=== PATIENT | female | born 1950 | race Caucasian/White ===

== ENCOUNTER 2016-08-10 15:51 | Inpatient (IN) | payer OTHER ==
--- NOTE | ~2016-08-10 | OP ---
Record Of Operation [facility] [address] [place]. [address] NAME: HAWA TURNER : 50 STATUS : ADM IN PAT#: [id number] AGE: 66 ADM/REG DATE : 08/10/16 MR#: [id number] REPORT SERV DATE: 08/12/16 DICTATED BY: LEV GARCIA DATE: 08/12/16 REPORT STATUS : Draft TRANSCRIBED BY: MODL DATE: 08/12/16 DATE OF PROCEDURE: 08/12/2016 PULMONARY CRITICAL CARE MEDICINE INTUBATION NOTE REASON FOR INTUBATION: Acute hypoxemic and hypercapnic respiratory. CONSENT: Emergent. PROCEDURE IN DETAIL: Hawa Turner with rapid response moved over to the MICU from the floor, and acute hypercapnic and hypoxemic respiratory failure. She was found to be in marked respiratory distress and upon arrival to the MICU, she was electively intubated. She was positioned in the usual fashion premedicated with etomidate 20 mg and rocuronium 50 mg ,and a #3 GlideScope was advanced into her mouth with grade 1 view of her cords. #7.5 endotracheal tube was passed through the cords with no difficulty and secured to the teeth at 20 cm using securement device. An OG tube was also inserted under direct visualization with the GlideScope. Following intubation, there was positive color change on CO2 detector. Bilateral breath sounds and absent breath sounds over the fundus of the stomach with bagging. Positive condensation in the tube and a followup chest x-ray was ordered for confirmation of tube location. Please see my handwritten progress note for additional details of critical care rendered to Ms. Turner this morning in the MICU. SYED/KATIE Lev Garcia MD / [id number] CC: DO Nestor Velasco M.D.
--- NOTE | ~2016-08-10 | OP ---
Record Of Operation [facility] [address] [place]. [address] NAME: MARIBELL TURNER : 50 STATUS : ADM IN PAT#: [id number] AGE: 66 ADM/REG DATE : 08/10/16 MR#: [id number] REPORT SERV DATE: 08/13/16 DICTATED BY: TUCKER ADAMS DATE: 08/13/16 REPORT STATUS : Draft TRANSCRIBED BY: MODL DATE: 08/13/16 DATE OF PROCEDURE: 08/12/2016 PROCEDURE: Placement of right femoral central line. REASON: The patient is hypotensive, requires pressors, and only has peripheral access. DESCRIPTION OF PROCEDURE: Consent was obtained for central line placement from the family. The patient is intubated. The right groin was prepped and draped in sterile fashion. Lidocaine 1% was used as a local anesthetic. The right femoral vein was localized using ultrasound guidance. The right femoral vein was easily seen and entered with a large bore needle. Guidewire was threaded through the needle, which was then removed. The site was dilated and 20-cm triple-lumen catheter was placed using Seldinger technique. The line was sewn in place with 2-0 silk and sterile Biopatch and dressing were applied. Good blood return was obtained from all three ports. /KATIE Tucker Adams M.D. / [id number] CC: DO Nestor Velasco M.D.
--- NOTE | ~2016-08-10 | DS ---
Discharge Summary [place] [address] [place]. [address] NAME: MARIBELL TURNER : 50 STATUS : DIS IN PAT#: [id number] AGE: 66 ADM/REG DATE : 08/10/16 MR#: [id number] REPORT SERV DATE: 09/06/16 DICTATED BY: JONNIE AGUIRRE DATE: 09/06/16 REPORT STATUS : Draft TRANSCRIBED BY: MODMarlon DATE: 09/06/16 ADMISSION DATE: 08/10/2016 DISCHARGE DATE: 09/06/2016 This will serve as a discharge summary for the patient. She has been here since 08/10/2016 and has several other interim discharge summaries from the other vertica architect including on 08/19/2016, 08/25/2016, and most recently 09/02/2016. CONDITION AT DISCHARGE: Is alive and improved. The patient is being transferred to [facility] facility for slow weaning of her vent dependent respiratory failure. HISTORY OF PRESENT ILLNESS: Ms. Turner is an unfortunate, unhealthy 66-year-old woman with multiple medical problems, most remarkable for this severe COPD with ongoing tobacco abuse up until admission, who was hospitalized with acute on chronic hypercapnic and hypoxemic respiratory failure. She remains on mechanical ventilation and failed to wean successfully and underwent tracheostomy placement. She had a PEG tube inserted as well and is doing better with T-piece trials and CPAP trials on the ventilator. Since the last interim discharge summary, she has actually had no new significant events which is to say she has been weaned maintenance sedation and has done well with benzodiazepines and Seroquel. She is off all active drips and again has had a tracheostomy tube and a PEG tube. PHYSICAL EXAMINATION: GENERAL: On today's exam, she is awake and alert. Somewhat anxious, but in no acute respiratory distress. VITAL SIGNS: Stable. HEENT: Normocephalic and atraumatic. NECK: Supple. No lymphadenopathy. No JVD. CHEST: Symmetric with good expansion bilaterally. LUNGS: Have very distant breath sounds, but otherwise clear. CARDIOVASCULAR: She has S1 and S2, which are regular rate and rhythm. ABDOMEN: Benign. She has no edema, clubbing, or cyanosis. ASSESSMENT AND PLAN: 1. Respiratory failure. She has acute on chronic hypercapnic and hypoxemic respiratory failure with very severe chronic obstructive pulmonary disease. She is being transferred to [facility] facility for further weaning. 2. Dysphagia. She remains with tracheostomy, so she had a PEG tube placed. 3. Tobacco abuse. She was smoking up until admission and has remained on nicotine replacement therapy and prednisone. 4. Underlying anxiety and chronic pain syndrome, she is now doing well on symptom triggered anxiolytics and analgesics, off all other maintenance drips. DICTATED BY: Jonnie Aguirre M.D. Discharge Summary [address] [address] NAME: MARIBELL TURNER : 50 STATUS : DIS IN PAT#: [id number] AGE: 66 ADM/REG DATE : 08/10/16 MR#: [id number] REPORT SERV DATE: 09/06/16 DICTATED BY: JONNIE AGUIRRE DATE: 09/06/16 REPORT STATUS : Draft TRANSCRIBED BY: KATIE DATE: 09/06/16 PAULETTE/KATIE Jonnie Aguirre M.D. / [id number] CC: MD Nestor Perez M.D.
--- NOTE | ~2016-08-10 | IDS ---
Interim Discharge Summary [facility] [address] [place]. [address] NAME: MARIBELL TURNER : 50 STATUS : ADM IN PAT#: [id number] AGE: 66 ADM/REG DATE : 08/10/16 MR#: [id number] REPORT SERV DATE: 08/19/16 DICTATED BY: TIFFANY JAIME DATE: 08/19/16 REPORT STATUS : Draft TRANSCRIBED BY: MODL DATE: 08/19/16 ADMISSION DATE: 08/10/2016 DISCHARGE DATE: DATE OF TRANSFER TO THE ICU: 08/12/2016. INTERIM DIAGNOSES: 1. Acute hypercapnic and hypoxic respiratory failure. 2. Acute chronic obstructive pulmonary disease exacerbation. 3. Shock. 4. Chronic pain. 5. History of alcohol abuse. ICU COURSE: Please see dictated H and P for full patient presentation and history. BRIEF SUMMARY: The patient is a 66-year-old white female with a past medical history of COPD, chronic pain, and alcohol use, who initially was admitted to the Hospitalist Service on 08/11/2016 with acute COPD exacerbation. She decompensated in less than 24 hours and had to be moved to the ICU where she was intubated for acute hypercapnic respiratory failure. On arrival to the ICU, she also developed hypotension and shock and had to have a central line placed and was started on Levophed. Empirically, she was placed on antibiotics as well for potentially septic shock. She did not grow any organisms anywhere from her sputum or blood, and antibiotics were eventually discontinued yesterday after a full course. She has also been weaned off Levophed and has been off pressors for the last several days now. Really, her main issue right now continues to be her respiratory failure. She has been on IV steroids as well as bronchodilators for an acute COPD exacerbation. I was actually able to wean her and liberate her from the ventilator on 08/16/2016, but then, she required re- intubation later that night for respiratory failure, and she remains on the ventilator at this time. She is beginning to have daily CPAP trials again, and I hope to have her be re- extubated in the next 24 to 72 hours. She is several liters positive today, so I am going to diurese her today in hopes of helping wean her from the ventilator. Otherwise, I am continuing her COPD treatment. She remains alert and oriented at this time. She does appear a little anxious, so I am going to transition her from propofol over to Precedex today as well in hopes that that will help liberate her from the ventilator as well. She still remains on the ventilator in ICU, and the oncoming manager education will begin taking care of her tomorrow. Please call if you have any questions. DE/KATIE Tiffany Jaime MD / [id number] Interim Discharge Summary [address] [address] NAME: MARIBELL TURNER : 50 STATUS : ADM IN PAT#: [id number] AGE: 66 ADM/REG DATE : 08/10/16 MR#: [id number] REPORT SERV DATE: 08/19/16 DICTATED BY: TIFFANY JAIME DATE: 08/19/16 REPORT STATUS : Draft TRANSCRIBED BY: KATIE DATE: 08/19/16 CC: MD Nestor Perez M.D.
--- NOTE | ~2016-08-10 | OP ---
Record Of Operation [facility] [address] [place]. [address] NAME: MARIBELL TURNER : 50 STATUS : ADM IN [facility]#: [id number] AGE: 66 ADM/REG DATE : 08/10/16 MR#: [id number] REPORT SERV DATE: 08/29/16 DICTATED BY: RENE BOLANOS DATE: 08/29/16 REPORT STATUS : Draft TRANSCRIBED BY: MODL DATE: 08/29/16 DATE OF PROCEDURE: PROCEDURE: EGD with PEG tube placement. INDICATION: Aphagia and chronic respiratory failure with plans for tracheostomy later today. MEDICATIONS: Propofol infusion. COMPLICATIONS: None. HISTORY: See consult note for details. Her heparin and tube feedings were held last night as she is going to have a trach later this afternoon. The potential risks were reviewed with the family and they elected to proceed. FINDINGS: Examination of the esophagus, stomach, and duodenum revealed a little bit of residual bile, but no evidence of gastric outlet obstruction. There was a nasogastric tube in place with the tip just beyond the pylorus. It was removed. A site for PEG tube placement was selected by transillumination and finger compression, and a 24-Yakut gastrostomy tube was placed via the push technique without difficulty. The patient tolerated the procedure well. IMPRESSION: Aphagia, status post PEG tube placement. PLAN: If no apparent complications related to the tube, can resume the tube feedings after the tracheostomy is placed. She had previously been on Jevity 1.2 with ProSource at a goal rate of 40 mL an hour per the Nutrition Service. We will start the tube feedings at 20 mL an hour and if tolerated for 6 hours, go ahead and bump her back to the goal rate of 40. /KATIE Rene Bolanos M.D. / [id number] CC: MD Nestor Perez M.D.
--- NOTE | ~2016-08-10 | IDS ---
Interim Discharge Summary [facility] [address] [place]. [address] NAME: MARIBELL TURNER : 50 STATUS : ADM IN PAT#: [id number] AGE: 66 ADM/REG DATE : 08/10/16 MR#: [id number] REPORT SERV DATE: 08/25/16 DICTATED BY: TUCKER ADAMS DATE: 08/25/16 REPORT STATUS : Draft TRANSCRIBED BY: MODL DATE: 08/25/16 ADMISSION DATE: 08/10/2016 DISCHARGE DATE: This summary is a continuation of an interim discharge summary already dictated by Dr. Jaime on 08/19/2016. DIAGNOSES: 1. Acute hypercapnic hypoxic respiratory failure. 2. Severe chronic obstructive lung disease. 3. Chronic pain. 4. History of alcohol abuse. 5. History of seizures. 6. History of severe generalized anxiety disorder. HOSPITAL COURSE: This update will cover from 08/22/2016 through 08/25/2016. This is a 66- year-old patient who was admitted to the hospital with acute on chronic hypercapnic respiratory failure, COPD exacerbation, required intubation and mechanical ventilation. She also developed some hypotension and shock after intubation and was started on Levophed. All cultures thus far have been negative, and all antibiotics have been stopped. She has been extubated twice and was doing relatively well until the morning of 08/22/2016 when she became extremely agitated, and despite best efforts to avoid intubation, she again became extremely hypercapnic with a low pH and required intubation with mechanical ventilation. Since that time, she has been more agitated on the ventilator. Her medications have been reviewed, and I have discontinued her BuSpar and started her on Seroquel. She is very difficult to sedate. We have started her on a fentanyl patch in efforts to wean the fentanyl drip. She receives p.r.n. diuretics. Daily spontaneous breathing trials have been initiated. However, the patient becomes extremely agitated and very difficult to wean. In my opinion, the patient needs a tracheostomy if this is the course the family wishes to pursue. I have made efforts to communicate with the patient; however, she is too agitated, I am not really convinced that she understands the concept of tracheostomy. I have updated her daughter Xochitl almost daily regarding her status and regarding tracheostomy. She will be speaking to the other family members and will get back to us on the afternoon of 08/25/2016, and if all are agreeable, I will put in a consult for ENT for tracheostomy. She has had no new infections. She is not on any antibiotics. She did have an ultrasound of the right upper arm that showed scant amount of thrombus in the right cephalic vein with a small amount of thrombus in the right basilic vein adjacent to the PICC line. We have not removed the PICC line. She has been on subcu heparin q.12 hours for DVT prophylaxis. I will increase that to q.8 hours. She has a remote history of alcohol abuse. She has been on thiamine that has been discontinued. Gastrointestinal prophylaxis has been with Protonix. I have continued her Celexa for depression. I have reviewed Dr. Larios's note from 03/27/2015. Diagnosis at that time was generalized anxiety disorder. In his note, it states that she does see [facility] for her chronic back pain. She was on Xanax at that time, and this might be another consideration for agitation. It was also recommended that she seek outpatient psychiatric care and look out [facility] [place], but I am not certain that this ever occurred. Interim Discharge Summary [address] [address] NAME: MARIBELL TURNER : 50 STATUS : ADM IN [facility]#: [id number] AGE: 66 ADM/REG DATE : 08/10/16 MR#: [id number] REPORT SERV DATE: 08/25/16 DICTATED BY: TUCKER ADAMS DATE: 08/25/16 REPORT STATUS : Draft TRANSCRIBED BY: KATIE DATE: 08/25/16 /KATIE Tucker Adams M.D. / [id number] CC: MD Nestor Perez M.D.
--- NOTE | ~2016-08-10 | CN ---
Consultation Report [facility] [address] [place]. [address] NAME: MARIBELL TURNER : 50 STATUS : ADM IN PAT#: [id number] AGE: 66 ADM/REG DATE : 08/10/16 MR#: [id number] REPORT SERV DATE: 08/27/16 DICTATED BY: RENE BOLANOS DATE: 08/27/16 REPORT STATUS : Draft TRANSCRIBED BY: KATIE DATE: 08/27/16 DATE OF CONSULTATION: HISTORY OF PRESENT ILLNESS: This is a 66-year-old woman with chronic respiratory failure, whom I asked to place a PEG tube in. She has a history of COPD for which she is on oxygen. Unfortunately, she continues to smoke and she has had numerous admissions for respiratory failure. She is now intubated and they were unable to wean her. There are plans for tracheostomy placement on Monday and I am asked to place a PEG tube for long-term feeding. She is on propofol sedation and subcu heparin. The daughter understands the need for PEG tube and has given verbal consent. PAST MEDICAL HISTORY: 1. Alcohol abuse. 2. Degenerative disk disease. 3. Chronic pain for which she is on narcotics. 4. Anxiety. 5. Oxygen-dependent COPD. 6. Hypertension. 7. Depression. 8. Continued tobacco use. PAST SURGICAL HISTORY: Status post kyphoplasty, status post numerous epidural steroid injections, status post percutaneous coronary intervention. MEDICATIONS: Budesonide inhaler, arformoterol inhaler, citalopram, docusate, fentanyl, gabapentin, subcu heparin, ipratropium inhaler, metoprolol, NicoDerm patch, pantoprazole 40 mg IV daily, quetiapine, roflumilast, and prednisone 30 mg daily. ALLERGIES: SULFA. FAMILY HISTORY: Remarkable for hypertension. SOCIAL HISTORY: She abuses alcohol and continues to smoke. REVIEW OF SYSTEMS: Otherwise unremarkable for constitutional, endocrine, neurologic, psychiatric, ocular, ENT, pulmonary, cardiovascular, GI, , or rheumatologic symptoms except for as noted above. PHYSICAL EXAMINATION: GENERAL: She is a woman, who looks older than her stated age and is unresponsive and sedated on propofol and intubated. VITAL SIGNS: Afebrile. LUNGS: Bilateral breath sounds. ABDOMEN: Soft, nontender, with some bruising from subcu heparin, but no visible abdominal Consultation Report [facility] [address] [place]. [address] NAME: MARIBELL TURNER : 50 STATUS : ADM IN PAT#: [id number] AGE: 66 ADM/REG DATE : 08/10/16 MR#: [id number] REPORT SERV DATE: 08/27/16 DICTATED BY: RENE BOLANOS DATE: 08/27/16 REPORT STATUS : Draft TRANSCRIBED BY: MODL DATE: 08/27/16 scars. EXTREMITIES: No edema. LABORATORY DATA: Albumin 2.6, INR 1.0, potassium 3.7, sodium 140, BUN 17, creatinine 0.39. White count normal, hemoglobin 8.6, and platelet count 165. IMPRESSION: Aphagia due to chronic respiratory failure with need for tracheostomy and continued support for enteral feedings. RECOMMENDATIONS: 1. We will go ahead and make arrangements for PEG tube placement on Monday, so that Dr. Moore can place the tracheostomy on Monday. 2. Permit for above. 3. Hold tube feedings after midnight Monday night. 4. Hold subcu heparin after Monday morning status. /KATIE Rene Bolanos M.D. / [id number] CC: MD Nestor Perez M.D. Ann Steciw, M.D. David L Armstrong, M.D.
--- NOTE | ~2016-08-10 | HP ---
History And Physical [place] [id number] [facility] [place]. [address] NAME: MARIBELL TURNER : 50 STATUS : ADM IN [facility]#: [id number] AGE: 66 ADM/REG DATE : 08/10/16 MR#: [id number] REPORT SERV DATE: 08/11/16 DICTATED BY: SAMANTHA VILLARREAL DATE: 08/10/16 REPORT STATUS : Draft TRANSCRIBED BY: MODL DATE: 08/10/16 DATE OF ADMISSION: 08/10/2016 REASON FOR ADMISSION: Shortness of breath and cough. PRIMARY CARE DOCTOR: Appears to be unclear. HISTORY OF PRESENT ILLNESS: This is a 66-year-old female with known history of chronic hypoxic hypercapnic respiratory failure due to COPD on 3 L home oxygen, known history of intubation, chronic narcotics taking 10 mg of Roxicodone five times a day. Known suspected history of possible isolated hypoxic associated seizure, no recurrence; depression; suspected failure to thrive; chronic pain syndrome; alcohol abuse. The patient came in with shortness of breath and productive cough for the last one week, significant anxiety as well. Her ABG here on non-rebreather 7.29/58/365 on 100%. The patient is now saturating more than 92% on 3 L. She denied fevers, chills, nausea, vomiting, diarrhea, chest pain, or chest pressure. Positive anxiety. The patient's chest x ray bibasilar alveolar infiltration. The patient took a Roxicodone while she was in the emergency department, her blood pressure went down to a mean arterial pressure of 58, thankfully after now getting a bolus and recycling her blood pressure her systolic is now over 120. She is unclear if she is continuing to drink alcohol abusively as well as being compliant with her medications for which she is on Anoro Ellipta for her COPD. PAST MEDICAL HISTORY: See above. PAST SURGICAL HISTORY: See above. FAMILY HISTORY: Hypertension at least in one parent. SOCIAL HISTORY: Former drinker and smoker. Unclear if she did drugs. Unclear if she is still drinking alcohol as well. REVIEW OF SYSTEMS: Done, see HPI. Otherwise, negative 10-points done. OBJECTIVE: VITAL SIGNS: Currently thankfully her systolic is 125, it was 91 when I entered the room and her mean arterial pressure was 58, then when I came back again and she was receiving a bolus and the patient admitted that she took a Percocet after being seen by the emergency department physician. Other vitals include a 7.5 temp, pulse 71, respirations were 31, now they are 20. GENERAL: Guarded. HEENT: PERRLA. No scleral icterus. CARDIOVASCULAR: Appeared to have a regular rate and rhythm. No murmur that I could History And Physical [address] [place]. [address] NAME: MARIBELL TURNER : 50 STATUS : ADM IN [facility]#: [id number] AGE: 66 ADM/REG DATE : 08/10/16 MR#: [id number] REPORT SERV DATE: 08/11/16 DICTATED BY: SAMANTHA VILLARREAL DATE: 08/10/16 REPORT STATUS : Draft TRANSCRIBED BY: KATIE DATE: 08/10/16 auscultate. RESPIRATORY: Bibasilar coarse breath sounds. Mild expiratory wheezes. ABDOMEN: Nontender and nondistended. Positive bowel sounds. EXTREMITIES: No edema. No ecchymosis. NEURO: GCS 15. A and O x4/4. PSYCH: She is anxious. LABORATORY DATA: She has 10.7 of white count, 13.7 hemoglobin, and 207,000 platelets. A 5.2 potassium, 139 sodium, 36 bicarb, 0.77 creatinine, and 11 BUN. BNP is 609.6. Troponin 0.04. ABG: See above. Chest X-ray: See above. EKG: She has some T-wave inversions in V6, V5, V4, need to reference if those are new. ED did not put a previous EKG on the chart. These do appear to be new T-wave inversions from March 2015; however, that was well over 14 months ago. ASSESSMENT AND PLAN: 1. Acute on chronic hypoxic hypercapnic respiratory failure due to chronic obstructive pulmonary disease acute exacerbation, 3/3 GOLD criteria. 2. Likely mild volume overload with confounding narcotic associated hypotension likely rule out sepsis associated hypotension. 3. History of alcoholism. 4. History of hypertension, currently not hypertensive. PLAN: We will go ahead and admit this patient. Brovana, budesonide, Solu-Medrol, Librium, and Ativan in case she is still drinking alcohol. IV Zosyn for anti-inflammatory. Activity is minimum until panculture results. BiPAP until tomorrow morning at 12.6/40%, a.m. ABG. We will give another liter bolus and I have told the patient not to take her home narcotics. As her pressure was 135, then she took up Roxicodone her pressure dropped immediately down to 91. Given this new T-wave inversions she has no active chest pain, chest pressure, get an echo, trend her cardiac enzymes. We will get an echo also to elucidate this elevated BNP that is not otherwise explained by any hypervolemia outside of the lungs. See rest of my orders. All questions were answered. It took well over 60 minutes to do. Reference, [employer] and [employer]. WST/MODL Samantha Villarreal DO History And Physical [address] [address] NAME: MARIBELL TURNER : 50 STATUS : ADM IN PAT#: [id number] AGE: 66 ADM/REG DATE : 08/10/16 MR#: [id number] REPORT SERV DATE: 08/11/16 DICTATED BY: SAMANTHA VILLARREAL DATE: 08/10/16 REPORT STATUS : Draft TRANSCRIBED BY: MODL DATE: 08/10/16 / [id number] CC: DO Nestor Velasco M.D.
--- NOTE | ~2016-08-10 | OP ---
Record Of Operation [facility] [address] [place]. [address] NAME: MARIBELL TURNER : 50 STATUS : ADM IN PAT#: [id number] AGE: 66 ADM/REG DATE : 08/10/16 MR#: [id number] REPORT SERV DATE: 08/22/16 DICTATED BY: TUCKER GARVIN DATE: 08/22/16 REPORT STATUS : Draft TRANSCRIBED BY: MODL DATE: 08/22/16 DATE OF PROCEDURE: 08/22/2016 INDICATIONS: This is a 66-year-old patient with known severe COPD. When on going smoking was admitted with hypercapnic respiratory failure. She has been intubated and extubated twice and out today again, required a third re-intubation secondary to sudden onset of respiratory distress and [id number] hypercapnic respiratory failure. DESCRIPTION OF PROCEDURE: The patient was given 20 mg of IV etomidate, 5 mL of Diprivan for intubation. She was intubated on the first attempt with a #4 blade laryngoscope, curved blade #7, and a half endotracheal tube. Vocal cords were well visualized. The patient was monitored throughout the procedure. Bilateral breath sounds were heard. CO2 sensor changed appropriate color from blue to yellow. /KATIE Tucker Garvin M.D. / [id number]
--- NOTE | ~2016-08-10 | IDS ---
Interim Discharge Summary [facility] [address] [place]. [address] NAME: MARIBELL TURNER : 50 STATUS : ADM IN PAT#: [id number] AGE: 66 ADM/REG DATE : 08/10/16 MR#: [id number] REPORT SERV DATE: 09/02/16 DICTATED BY: LEV GARCIA DATE: 09/02/16 REPORT STATUS : Draft TRANSCRIBED BY: MODMarlon DATE: 09/02/16 ADMISSION DATE: 08/10/2016 DISCHARGE DATE: PULMONARY CRITICAL CARE MEDICINE INTERIM DISCHARGE SUMMARY This summary will cover 08/26/2016 through during the Ms. Turner's MICU stay. 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 Turner's MICU stay leading up to where this summary picks up on 08/26/2016. Ms. Turner had an eventful week. She was seen by Dr. Moore from ENT for a consideration of trach and ultimately underwent insertion of both trach and PEG earlier this week by Dr. Moore and the GI team (Dr. Bolanos). She was weaned off all vasopressors and had some persistent agitation, which was treated with escalating doses of both alprazolam and Seroquel. She has now been weaned off all sedation drips and is being managed only by sedation medications via PEG tube. She is now being moved to the Intermediate Care Unit for ongoing management until she can be placed in a facility. ACTIVE PROBLEM LIST: Includes, 1. Acute hypercapnic and hypoxemic respiratory failure, status post trach on 08/29/[address] Moore. She is undergoing daily weaning trials as we continue to control her agitation. 2. Severe COPD secondary to underlying tobacco use. She is on bronchodilator protocol and low-dose prednisone, which is being weaned. Her dose was de-escalated to 5 mg daily this morning. 3. Dysphagia, status post PEG insertion on 08/29/[address] Bolanos. She is not tolerating tube feedings. 4. Underlying anxiety disorder and chronic pain disorder, requiring long-term benzodiazepines as well as long-term opiates. Continue present regimen with additional symptom-triggered anxiolytics and analgesics on an as-needed basis. 5. Anemia, stable. She is on subcutaneous heparin for a DVT prophylaxis. Proton pump inhibitor for GI prophylaxis/stress ulcer prophylaxis and is on SSRI for depression and anxiety as well as mirabegron for additional control and gabapentin for control of her neuropathy. She is a full code. She has morning labs ordered for tomorrow and she is being moved to the Intermediate Care Unit for ongoing management. Please call with questions. SYED/KATIE Lev Garcia MD Interim Discharge Summary [address] [place] [address] NAME: MARIBELL TURNER : 50 STATUS : ADM IN [facility]#: [id number] AGE: 66 ADM/REG DATE : 08/10/16 MR#: [id number] REPORT SERV DATE: 09/02/16 DICTATED BY: LEV GARCIA DATE: 09/02/16 REPORT STATUS : Draft TRANSCRIBED BY: KATIE DATE: 09/02/16 / [id number] CC: MD Nestor Perez M.D.
--- NOTE | ~2016-08-10 | OP ---
Record Of Operation [facility] [address] [place]. [address] NAME: MARIBELL TURNER : 50 STATUS : ADM IN [facility]#: [id number] AGE: 66 ADM/REG DATE : 08/10/16 MR#: [id number] REPORT SERV DATE: 08/31/16 DICTATED BY: TIFFANY BLACK DATE: 08/31/16 REPORT STATUS : Draft TRANSCRIBED BY: MODMarlon DATE: 08/31/16 DATE OF PROCEDURE: 08/29/2016 PREOPERATIVE DIAGNOSES: Chronic obstructive pulmonary disease and recurrent respiratory failure. POSTOPERATIVE DIAGNOSES: Chronic obstructive pulmonary disease and recurrent respiratory failure. OPERATIVE PROCEDURE PERFORMED: Tracheostomy. INDICATIONS AND SIGNIFICANT HISTORY: The patient is a 66-year-old female with significant history of severe COPD, who has had multiple intubation, when she was intubated, had breath support, and she does well, and upon extubation, tires and then became hypercapnic and reintubated. She was felt to benefit from tracheostomy placement and was scheduled for such. OPERATIVE PROCEDURE AND FINDINGS: After informed consent was obtained, the patient was brought to the operating room, and placed on the operating room table in the supine position. At which point, general endotracheal anesthesia was induced by the Anesthesia Service through a previously placed orotracheal tube. At this point, the skin of the neck was prepped and draped in standard sterile fashion. 15 blade scalpel was used to make a vertical midline incision approximately two fingerbreadths above the sternal notch. A small amount of subcutaneous fat was removed. The strap muscles were identified in midline and retracted laterally. The thyroid isthmus was divided in midline and retracted laterally. This exposed the anterior tracheal wall. The anterior tracheal wall was entered via an inferiorly based Sonia type flap between the second and third tracheal rings. At this point, the oral endotracheal tube was withdrawn and a 6.0 Shiley DCT tracheostomy tube was inserted into the stoma. The patient tolerated this well, placement of the tracheostomy tube was confirmed with visible rise and fall of the chest, return of adequate tidal volume, and continued ventilation of the patient. The patient then had her tracheostomy tube secured at four points along with a Velcro trach collar. She was turned back toward Anesthesia, aroused from anesthesia, and taken to the Postanesthesia Care Unit in satisfactory condition. COMPLICATIONS: None. ESTIMATED BLOOD LOSS: Less than 5 mL. IV FLUIDS: Per Anesthesia. DLA/MODL Tiffany Mason Record Of Operation [address] [place]. [address] NAME: MARIBELL TURNER : 50 STATUS : ADM IN [facility]#: [id number] AGE: 66 ADM/REG DATE : 08/10/16 MR#: [id number] REPORT SERV DATE: 08/31/16 DICTATED BY: TIFFANY BLACK DATE: 08/31/16 REPORT STATUS : Draft TRANSCRIBED BY: KATEI DATE: 08/31/16 Abe Black / [id number] CC: MD Nestor Perez M.D.
[~2016-08-10 15:51] MED LIST: ADVAIR115P INH; ADVIL PO; ASAB PO; CARDCD180 PO; CYMBALTA60 PO; DIL4TAB PO; ESTRACE0.5 MG PO; FLEX PO; FLOVENT44 INH; FORTEO SC; IMDUR30 PO; IPRA17AE INH; LEVAQUIN750 MG PO; MSCONT15 PO; NEUR100 PO; NEUR300 PO; OXYCOD PO; PERCOCET1 TA4 PO; PROAIR HFA INH; PROVENT20 INH; PROVHFA INH; SINGULAIR1 PO; STERAPDS12; STIOLTO RESPIMAT4 GM INH; SYMBICORT 80/4.1 INH INH; T PO; TYLENOL PM PO; VISINE0.05 % OPH; X25 PO; X5 PO; ZANAFLEX 4 MG TA4 MG PO
[2016-08-10 15:52] LABS: BASOPHILS 0.2 %; BASOPHILS ABSOLUTE 0.02 10/3/uL (0.0-0.16); EOSINOPHILS 0.3 %; EOSINOPHILS ABSOLUTE 0.03 10/3/uL (0.0-0.53); HEMATOCRIT 41.5 % (36.0-48.0); HEMOGLOBIN 13.7 g/dL (12.0-16.0); IMMATURE GRANULOCYTES 0.2 %; IMMATURE GRANULOCYTES ABSOLUTE 0.02 10/3/uL (0.0-0.11); LYMPHOCYTES 5.7 %; LYMPHOCYTES ABSOLUTE 0.61 10/3/uL (0.67-4.30); MANUAL DIFF NO %; MEAN CORPUSCULAR HEMOGLOB 32.4 pg (26.0-34.0); MEAN CORPUSCULAR VOLUME 98.1 fL (80-100); MEAN PLATELET VOLUME 9.7 fL (9.2-13.0); MONOCYTES 3.9 %; MONOCYTES ABSOLUTE 0.42 10/3/uL (0.21-1.20); NEUTROPHILS 89.7 %; NEUTROPHILS ABSOLUTE 9.63 10/3/uL (2.02-8.40); PLATELET COUNT 307 10/3/uL (150-400); RBC DISTRIBUTION WIDTH 13.8 % (12.0-16.0); RED CELL COUNT 4.23 10/6/uL (4.0-5.6); WHITE BLOOD CELLS 10.7 10/3/uL (4.5-10.5)
[2016-08-10] MEDS ORDERED: PERCOCET 10/3251 TAB PO (15:57)
[2016-08-10] MEDS ORDERED: ZANAFLEX 4 MG TA4 MG PO (15:57)
[2016-08-10] MEDS ORDERED: ANOROELLIPTA INH (16:00)
[2016-08-10] MEDS ORDERED: NEUR100 PO (16:00)
[2016-08-10] MEDS ORDERED: VENTOLIN HFA INH (16:01)
[2016-08-10] MEDS ORDERED: MYRBETRIQ50 MG PO (16:01)
[2016-08-10 16:02] LABS: PARTIAL THROMBO TIME 26.4 SEC (22.5-37.2)
[2016-08-10] MEDS ORDERED: MARI5 PO (16:02)
[2016-08-10] MEDS ORDERED: BUSPAR15 M1 PO (16:03)
[2016-08-10] MEDS ORDERED: ADVIL PM1 CAP PO (16:05)
[2016-08-10] MEDS ORDERED: TOPXL50 PO (16:06)
[2016-08-10] MEDS ORDERED: PRILOSEC40 MG PO (16:09)
[2016-08-10 16:10] LABS: BUN (BLOOD UREA NITROGEN) 11 MG/DL (6-23); CALCIUM, SERUM 8.5 MG/DL (8.5-10.4); CHEST PAIN PROFILE TAT 0 Hrs 24 Mins; CHLORIDE, SERUM 102 MMOL/L (96-112); CO2 (CARBON DIOXIDE) 36 MMOL/L (24-34); CREATININE 0.77 MG/DL (0.55-1.02); GFR AFRICAN AMERICAN 93 ML/MIN (>=60); GFR NON AFRICAN AMERICAN 80 ML/MIN (>=60); GLUCOSE, SERUM 145 MG/DL (60-99); POTASSIUM, SERUM 5.2 MMOL/L (3.5-5.3); SODIUM, SERUM 139 MMOL/L (135-148); TROPONIN I 0.04 NG/ML (<0.05)
[2016-08-10] MEDS ORDERED: ALBUTEROL0.083 % INH (16:10)
[2016-08-10 16:12] LABS: PROTIME (NOT ORD) 13.1 SEC (12.0-14.5)
[2016-08-10 16:39] LABS: BE (BASE EXCESS) -0.4 MEQ/L (0 +/- 2.5); INSTRUMENT SERIAL # 8087; PCO2 (CO2 TENSION) 58 MMHG (35-45); PO2 (O2 TENSION) 365 MMHG (79-93); pH 7.29 (7.37-7.43)
[2016-08-10 16:40] LABS: HCO3 (ACTUAL BICARBONATE) 27.5 MEQ/L (23-27); SAMPLE Arterial
[2016-08-10 20:56] LABS: ALKALINE PHOSPHATASE 93 U/L (45-117); PHOSPHORUS, SERUM 4.7 MG/DL (2.5-4.5); SGOT(AST) 36 U/L (5-40); SGPT(ALT) 19 U/L (5-65); TOTAL BILIRUBIN 0.5 MG/DL (0-1.2)
[2016-08-10 21:01] LABS: BASOPHILS 0 %; EOSINOPHILS 0.2 %; EOSINOPHILS ABSOLUTE 0.01 10/3/uL (0.0-0.53); HEMATOCRIT 38.5 % (36.0-48.0); HEMOGLOBIN 12.6 g/dL (12.0-16.0); IMMATURE GRANULOCYTES 0.2 %; IMMATURE GRANULOCYTES ABSOLUTE 0.01 10/3/uL (0.0-0.11); LYMPHOCYTES ABSOLUTE 0.34 10/3/uL (0.67-4.30); MEAN CORPUS HGB CONC 32.7 g/dL (32.0-36.0); MEAN CORPUSCULAR HEMOGLOB 31.8 pg (26.0-34.0); MEAN CORPUSCULAR VOLUME 97.2 fL (80-100); MEAN PLATELET VOLUME 9.6 fL (9.2-13.0); MONOCYTES 0.8 %; MONOCYTES ABSOLUTE 0.04 10/3/uL (0.21-1.20); NEUTROPHILS 91.8 %; NEUTROPHILS ABSOLUTE 4.47 10/3/uL (2.02-8.40); PLATELET COUNT 252 10/3/uL (150-400); RBC DISTRIBUTION WIDTH 13.7 % (12.0-16.0); RED CELL COUNT 3.96 10/6/uL (4.0-5.6)
[2016-08-10 21:02] LABS: MANUAL DIFF NO %; WHITE BLOOD CELLS 4.9 10/3/uL (4.5-10.5)
[2016-08-10 21:18] LABS: CK-MB 3.9 NG/ML; CPK 48 U/L (0-200); TROPONIN I 0.05 NG/ML (<0.05)
[2016-08-10 21:26] LABS: B NATRIURETIC PEPTIDE (BNP) 539.6 PG/ML (< 100.0)
[2016-08-10 21:31] LABS: PROCALCITONIN < 0.05 ng/mL (<0.5)
[2016-08-10 22:15] LABS: GLYCOHEMOGLOBIN (HbA1c) 5.1 % (4.7-6.1)
[2016-08-10 22:18] LABS: A/G RATIO 1.4 (0.7-1.9); ALBUMIN 3.8 G/DL (3.5-5.0); GLOBULIN 2.7 G/DL (2.5-4.1); TOTAL PROTEIN 6.5 G/DL (6.0-8.5)
[2016-08-11 02:04] LABS: BASOPHILS 0 %; EOSINOPHILS 0 %; HEMATOCRIT 38.1 % (36.0-48.0); HEMOGLOBIN 12.5 g/dL (12.0-16.0); LYMPHOCYTES 14.3 %; LYMPHOCYTES ABSOLUTE 0.35 10/3/uL (0.67-4.30); MEAN CORPUS HGB CONC 32.8 g/dL (32.0-36.0); MEAN CORPUSCULAR VOLUME 97.4 fL (80-100); MEAN PLATELET VOLUME 9.6 fL (9.2-13.0); MONOCYTES 2.9 %; MONOCYTES ABSOLUTE 0.07 10/3/uL (0.21-1.20); NEUTROPHILS 82.8 %; NEUTROPHILS ABSOLUTE 2.02 10/3/uL (2.02-8.40); PLATELET COUNT 240 10/3/uL (150-400); RBC DISTRIBUTION WIDTH 13.9 % (12.0-16.0); RED CELL COUNT 3.91 10/6/uL (4.0-5.6)
[2016-08-11 02:05] LABS: WHITE BLOOD CELLS 2.4 10/3/uL (4.5-10.5)
[2016-08-11 02:06] LABS: MANUAL DIFF NO %
[2016-08-11 02:37] LABS: BUN (BLOOD UREA NITROGEN) 15 MG/DL (6-23); CALCIUM, SERUM 8.7 MG/DL (8.5-10.4); CHLORIDE, SERUM 103 MMOL/L (96-112); CK-MB 3.8 NG/ML; CO2 (CARBON DIOXIDE) 29 MMOL/L (24-34); CPK 47 U/L (0-200); CREATININE 0.78 MG/DL (0.55-1.02); GFR AFRICAN AMERICAN 92 ML/MIN (>=60); GFR NON AFRICAN AMERICAN 79 ML/MIN (>=60); GLUCOSE, SERUM 158 MG/DL (60-99); PHOSPHORUS, SERUM 3.3 MG/DL (2.5-4.5); POTASSIUM, SERUM 5.2 MMOL/L (3.5-5.3); SODIUM, SERUM 138 MMOL/L (135-148); TROPONIN I 0.04 NG/ML (<0.05)
[2016-08-11 05:06] LABS: ALLENS TEST Pos; BE (BASE EXCESS) 2.2 MEQ/L (0 +/- 2.5); BIPAP 14/6 cm.H2O; CARBOXYHEMOGLOBIN 0.8 % (0-3); HCO3 (ACTUAL BICARBONATE) 27.6 MEQ/L (23-27); HEMOBLOGIN CONTENT 12.7 G/DL (12-16); INSTRUMENT SERIAL # 8083; METHEMOGLOBIN 0.2 % (0-3); O2 CONTENT 18.3 VOL% (18-24); PCO2 (CO2 TENSION) 47 MMHG (35-45); PO2 (O2 TENSION) 291 MMHG (79-93); SAMPLE Arterial; pH 7.39 (7.37-7.43)
[2016-08-11 05:42] LABS: PROCALCITONIN 0.06 ng/mL (<0.5)
[2016-08-11 16:32] LABS: CA 125 II 18.5 U/ML (< 35.0); CA-19-9 7.3 U/ML (< 37.0); CEA 5.3 NG/ML
[2016-08-12 05:01] LABS: BASOPHILS 0 %; EOSINOPHILS 0 %; HEMOGLOBIN 10.3 g/dL (12.0-16.0); IMMATURE GRANULOCYTES 0.2 %; IMMATURE GRANULOCYTES ABSOLUTE 0.01 10/3/uL (0.0-0.11); LYMPHOCYTES 6.8 %; LYMPHOCYTES ABSOLUTE 0.28 10/3/uL (0.67-4.30); MEAN CORPUS HGB CONC 33.7 g/dL (32.0-36.0); MEAN PLATELET VOLUME 9.4 fL (9.2-13.0); MONOCYTES 4.1 %; MONOCYTES ABSOLUTE 0.17 10/3/uL (0.21-1.20); NEUTROPHILS 88.9 %; NEUTROPHILS ABSOLUTE 3.66 10/3/uL (2.02-8.40); PLATELET COUNT 201 10/3/uL (150-400); RED CELL COUNT 3.22 10/6/uL (4.0-5.6)
[2016-08-12 05:02] LABS: HEMATOCRIT 30.6 % (36.0-48.0); MANUAL DIFF NO %; WHITE BLOOD CELLS 4.1 10/3/uL (4.5-10.5)
[2016-08-12 05:15] LABS: BUN (BLOOD UREA NITROGEN) 14 MG/DL (6-23); CALCIUM, SERUM 8.9 MG/DL (8.5-10.4); CHLORIDE, SERUM 101 MMOL/L (96-112); CO2 (CARBON DIOXIDE) 28 MMOL/L (24-34); CREATININE 0.63 MG/DL (0.55-1.02); GFR AFRICAN AMERICAN 108 ML/MIN (>=60); GFR NON AFRICAN AMERICAN 93 ML/MIN (>=60); GLUCOSE, SERUM 147 MG/DL (60-99); PHOSPHORUS, SERUM 2.5 MG/DL (2.5-4.5); SODIUM, SERUM 138 MMOL/L (135-148)
[2016-08-12 05:17] LABS: POTASSIUM, SERUM 3.6 MMOL/L (3.5-5.3)
[2016-08-12 09:06] LABS: ALLENS TEST Pos; BE (BASE EXCESS) -1.5 MEQ/L (0 +/- 2.5); CARBOXYHEMOGLOBIN 0.6 % (0-3); HCO3 (ACTUAL BICARBONATE) 24.9 MEQ/L (23-27); HEMOBLOGIN CONTENT 11.1 G/DL (12-16); INSTRUMENT SERIAL # 8083; METHEMOGLOBIN 0.3 % (0-3); MODE CMV; O2 CONTENT 14.4 VOL% (18-24); OPERATOR ID 13715; PCO2 (CO2 TENSION) 49 MMHG (35-45); PO2 (O2 TENSION) 72 MMHG (79-93); SAMPLE Arterial; TIDAL VOLUME 400 ML; pH 7.32 (7.37-7.43)
[2016-08-12 15:48] LABS: A/G RATIO 1.4 (0.7-1.9); ALBUMIN 3.3 G/DL (3.5-5.0); ALKALINE PHOSPHATASE 52 U/L (45-117); GLOBULIN 2.4 G/DL (2.5-4.1); PREALBUMIN 12.8 MG/DL (17.0-43.0); SGOT(AST) 15 U/L (5-40); SGPT(ALT) 14 U/L (5-65); TOTAL BILIRUBIN 0.4 MG/DL (0-1.2); TOTAL PROTEIN 5.7 G/DL (6.0-8.5)
[2016-08-13 03:51] LABS: ALLENS TEST Pos; BE (BASE EXCESS) 1.3 MEQ/L (0 +/- 2.5); CARBOXYHEMOGLOBIN 0.8 % (0-3); HCO3 (ACTUAL BICARBONATE) 26.2 MEQ/L (23-27); HEMOBLOGIN CONTENT 8.8 G/DL (12-16); INSTRUMENT SERIAL # 8083; METHEMOGLOBIN 0.4 % (0-3); MODE CMV; O2 CONTENT 12.2 VOL% (18-24); OPERATOR ID 16503; PCO2 (CO2 TENSION) 42 MMHG (35-45); PO2 (O2 TENSION) 115 MMHG (79-93); SAMPLE Arterial; TIDAL VOLUME 400 ML; pH 7.41 (7.37-7.43)
[2016-08-13 05:09] LABS: BASOPHILS 0 %; EOSINOPHILS 0 %; HEMOGLOBIN 8.8 g/dL (12.0-16.0); IMMATURE GRANULOCYTES 0.2 %; IMMATURE GRANULOCYTES ABSOLUTE 0.01 10/3/uL (0.0-0.11); LYMPHOCYTES 4.6 %; LYMPHOCYTES ABSOLUTE 0.21 10/3/uL (0.67-4.30); MEAN CORPUS HGB CONC 33.2 g/dL (32.0-36.0); MEAN CORPUSCULAR HEMOGLOB 32.2 pg (26.0-34.0); MEAN CORPUSCULAR VOLUME 97.1 fL (80-100); MEAN PLATELET VOLUME 9.7 fL (9.2-13.0); MONOCYTES 5.7 %; MONOCYTES ABSOLUTE 0.26 10/3/uL (0.21-1.20); NEUTROPHILS 89.5 %; NEUTROPHILS ABSOLUTE 4.12 10/3/uL (2.02-8.40); PLATELET COUNT 164 10/3/uL (150-400); RBC DISTRIBUTION WIDTH 14.7 % (12.0-16.0); RED CELL COUNT 2.73 10/6/uL (4.0-5.6); WHITE BLOOD CELLS 4.6 10/3/uL (4.5-10.5)
[2016-08-13 05:11] LABS: HEMATOCRIT 26.5 % (36.0-48.0); MANUAL DIFF NO %
[2016-08-13 05:28] LABS: BUN (BLOOD UREA NITROGEN) 8 MG/DL (6-23); CALCIUM, SERUM 7.9 MG/DL (8.5-10.4); CHLORIDE, SERUM 106 MMOL/L (96-112); CO2 (CARBON DIOXIDE) 29 MMOL/L (24-34); CREATININE 0.43 MG/DL (0.55-1.02); GFR AFRICAN AMERICAN 123 ML/MIN (>=60); GFR NON AFRICAN AMERICAN 106 ML/MIN (>=60); GLUCOSE, SERUM 130 MG/DL (60-99); POTASSIUM, SERUM 3.3 MMOL/L (3.5-5.3); SODIUM, SERUM 142 MMOL/L (135-148)
[2016-08-14 04:49] LABS: ALLENS TEST Pos; BE (BASE EXCESS) 1.4 MEQ/L (0 +/- 2.5); CARBOXYHEMOGLOBIN 0.6 % (0-3); HCO3 (ACTUAL BICARBONATE) 26.8 MEQ/L (23-27); INSTRUMENT SERIAL # 8083; METHEMOGLOBIN 0.1 % (0-3); O2 CONTENT 12.6 VOL% (18-24); OPERATOR ID 33214; PCO2 (CO2 TENSION) 46 MMHG (35-45); PO2 (O2 TENSION) 57 MMHG (79-93); SAMPLE Arterial; TIDAL VOLUME 400 ML; pH 7.38 (7.37-7.43)
[2016-08-14 04:54] LABS: BASOPHILS 0 %; EOSINOPHILS 0.2 %; EOSINOPHILS ABSOLUTE 0.01 10/3/uL (0.0-0.53); HEMATOCRIT 28.4 % (36.0-48.0); HEMOGLOBIN 9.3 g/dL (12.0-16.0); IMMATURE GRANULOCYTES 0.5 %; IMMATURE GRANULOCYTES ABSOLUTE 0.03 10/3/uL (0.0-0.11); LYMPHOCYTES 5.6 %; LYMPHOCYTES ABSOLUTE 0.31 10/3/uL (0.67-4.30); MANUAL DIFF NO %; MEAN CORPUS HGB CONC 32.7 g/dL (32.0-36.0); MEAN CORPUSCULAR HEMOGLOB 32.2 pg (26.0-34.0); MEAN CORPUSCULAR VOLUME 98.3 fL (80-100); MEAN PLATELET VOLUME 9.5 fL (9.2-13.0); MONOCYTES ABSOLUTE 0.22 10/3/uL (0.21-1.20); NEUTROPHILS 89.7 %; NEUTROPHILS ABSOLUTE 4.95 10/3/uL (2.02-8.40); PLATELET COUNT 153 10/3/uL (150-400); RBC DISTRIBUTION WIDTH 15.2 % (12.0-16.0); RED CELL COUNT 2.89 10/6/uL (4.0-5.6); WHITE BLOOD CELLS 5.5 10/3/uL (4.5-10.5)
[2016-08-14 05:10] LABS: BUN (BLOOD UREA NITROGEN) 9 MG/DL (6-23); CALCIUM, SERUM 7.9 MG/DL (8.5-10.4); CHLORIDE, SERUM 110 MMOL/L (96-112); CO2 (CARBON DIOXIDE) 30 MMOL/L (24-34); CREATININE 0.42 MG/DL (0.55-1.02); GFR AFRICAN AMERICAN 124 ML/MIN (>=60); GFR NON AFRICAN AMERICAN 107 ML/MIN (>=60); GLUCOSE, SERUM 171 MG/DL (60-99); PHOSPHORUS, SERUM 2.5 MG/DL (2.5-4.5); POTASSIUM, SERUM 3.7 MMOL/L (3.5-5.3); SODIUM, SERUM 144 MMOL/L (135-148)
[2016-08-14 13:28] LABS: ALLENS TEST Pos; BE (BASE EXCESS) 1.7 MEQ/L (0 +/- 2.5); CARBOXYHEMOGLOBIN 0.3 % (0-3); HCO3 (ACTUAL BICARBONATE) 28.6 MEQ/L (23-27); HEMOBLOGIN CONTENT 10.1 G/DL (12-16); INSTRUMENT SERIAL # 8083; METHEMOGLOBIN 0.2 % (0-3); MODE CMV; O2 CONTENT 14.1 VOL% (18-24); OPERATOR ID 18801; PCO2 (CO2 TENSION) 57 MMHG (35-45); PO2 (O2 TENSION) 119 MMHG (79-93); SAMPLE Arterial; TIDAL VOLUME 400 ML; pH 7.32 (7.37-7.43)
[2016-08-15 03:45] LABS: BE (BASE EXCESS) 3.7 MEQ/L (0 +/- 2.5); CARBOXYHEMOGLOBIN 0.9 % (0-3); HCO3 (ACTUAL BICARBONATE) 28.4 MEQ/L (23-27); HEMOBLOGIN CONTENT 9.6 G/DL (12-16); INSTRUMENT SERIAL # 8083; METHEMOGLOBIN 0.3 % (0-3); MODE CMV; O2 CONTENT 13.1 VOL% (18-24); PCO2 (CO2 TENSION) 44 MMHG (35-45); PO2 (O2 TENSION) 87 MMHG (79-93); SAMPLE Arterial; TIDAL VOLUME 400 ML; pH 7.43 (7.37-7.43)
[2016-08-15 08:15] LABS: BASOPHILS 0 %; EOSINOPHILS 0 %; HEMATOCRIT 27.3 % (36.0-48.0); IMMATURE GRANULOCYTES 1.1 %; IMMATURE GRANULOCYTES ABSOLUTE 0.06 10/3/uL (0.0-0.11); LYMPHOCYTES 8.7 %; LYMPHOCYTES ABSOLUTE 0.46 10/3/uL (0.67-4.30); MEAN CORPUSCULAR HEMOGLOB 32.5 pg (26.0-34.0); MEAN CORPUSCULAR VOLUME 98.6 fL (80-100); MONOCYTES ABSOLUTE 0.37 10/3/uL (0.21-1.20); NEUTROPHILS 83.2 %; NEUTROPHILS ABSOLUTE 4.38 10/3/uL (2.02-8.40); PLATELET COUNT 162 10/3/uL (150-400); RBC DISTRIBUTION WIDTH 15.7 % (12.0-16.0); RED CELL COUNT 2.77 10/6/uL (4.0-5.6); WHITE BLOOD CELLS 5.3 10/3/uL (4.5-10.5)
[2016-08-15 08:19] LABS: MANUAL DIFF NO %
[2016-08-15 08:33] LABS: A/G RATIO 1.4 (0.7-1.9); ALBUMIN 2.7 G/DL (3.5-5.0); BUN (BLOOD UREA NITROGEN) 11 MG/DL (6-23); CALCIUM, SERUM 7.8 MG/DL (8.5-10.4); CHLORIDE, SERUM 109 MMOL/L (96-112); CO2 (CARBON DIOXIDE) 31 MMOL/L (24-34); CREATININE 0.35 MG/DL (0.55-1.02); GFR AFRICAN AMERICAN 131 ML/MIN (>=60); GFR NON AFRICAN AMERICAN 113 ML/MIN (>=60); GLUCOSE, SERUM 165 MG/DL (60-99); PHOSPHORUS, SERUM 2.6 MG/DL (2.5-4.5); PREALBUMIN 15.2 MG/DL (17.0-43.0); SGOT(AST) 8 U/L (5-40); SGPT(ALT) 13 U/L (5-65); SODIUM, SERUM 144 MMOL/L (135-148); TOTAL BILIRUBIN 0.3 MG/DL (0-1.2); TOTAL PROTEIN 4.7 G/DL (6.0-8.5)
[2016-08-15 08:38] LABS: ALKALINE PHOSPHATASE 32 U/L (45-117)
[2016-08-15 11:26] LABS: PROCALCITONIN < 0.05 ng/mL (<0.5)
[2016-08-16 05:01] LABS: BASOPHILS 0.2 %; BASOPHILS ABSOLUTE 0.01 10/3/uL (0.0-0.16); EOSINOPHILS 0 %; HEMATOCRIT 29.2 % (36.0-48.0); HEMOGLOBIN 9.3 g/dL (12.0-16.0); IMMATURE GRANULOCYTES 1.1 %; IMMATURE GRANULOCYTES ABSOLUTE 0.05 10/3/uL (0.0-0.11); LYMPHOCYTES 11.8 %; LYMPHOCYTES ABSOLUTE 0.54 10/3/uL (0.67-4.30); MEAN CORPUS HGB CONC 31.8 g/dL (32.0-36.0); MEAN CORPUSCULAR HEMOGLOB 31.8 pg (26.0-34.0); MONOCYTES 7.9 %; MONOCYTES ABSOLUTE 0.36 10/3/uL (0.21-1.20); NEUTROPHILS ABSOLUTE 3.61 10/3/uL (2.02-8.40); PLATELET COUNT 159 10/3/uL (150-400); RBC DISTRIBUTION WIDTH 15.6 % (12.0-16.0); RED CELL COUNT 2.92 10/6/uL (4.0-5.6); WHITE BLOOD CELLS 4.6 10/3/uL (4.5-10.5)
[2016-08-16 05:02] LABS: MANUAL DIFF NO %
[2016-08-16 05:12] LABS: BUN (BLOOD UREA NITROGEN) 14 MG/DL (6-23); CALCIUM, SERUM 7.9 MG/DL (8.5-10.4); CHLORIDE, SERUM 108 MMOL/L (96-112); CO2 (CARBON DIOXIDE) 31 MMOL/L (24-34); CREATININE 0.44 MG/DL (0.55-1.02); GFR AFRICAN AMERICAN 122 ML/MIN (>=60); GFR NON AFRICAN AMERICAN 105 ML/MIN (>=60); GLUCOSE, SERUM 142 MG/DL (60-99); POTASSIUM, SERUM 4.2 MMOL/L (3.5-5.3); SODIUM, SERUM 139 MMOL/L (135-148)
[2016-08-16 21:08] LABS: ALLENS TEST Pos; BE (BASE EXCESS) 2.5 MEQ/L (0 +/- 2.5); HCO3 (ACTUAL BICARBONATE) 27.6 MEQ/L (23-27); HEMOBLOGIN CONTENT 9.6 G/DL (12-16); INSTRUMENT SERIAL # 8083; METHEMOGLOBIN 0.2 % (0-3); MODE CMV; O2 CONTENT 12.7 VOL% (18-24); PCO2 (CO2 TENSION) 46 MMHG (35-45); PO2 (O2 TENSION) 76 MMHG (79-93); SAMPLE Arterial; TIDAL VOLUME 400 ML
[2016-08-17 03:44] LABS: ALLENS TEST Pos; BE (BASE EXCESS) 2.3 MEQ/L (0 +/- 2.5); CARBOXYHEMOGLOBIN 0.8 % (0-3); HCO3 (ACTUAL BICARBONATE) 26.2 MEQ/L (23-27); HEMOBLOGIN CONTENT 9.3 G/DL (12-16); INSTRUMENT SERIAL # 8083; METHEMOGLOBIN 0.2 % (0-3); MODE CMV; O2 CONTENT 12.7 VOL% (18-24); OPERATOR ID 17370; PCO2 (CO2 TENSION) 38 MMHG (35-45); PO2 (O2 TENSION) 91 MMHG (79-93); SAMPLE Arterial; TIDAL VOLUME 400 ML; pH 7.46 (7.37-7.43)
[2016-08-17 04:18] LABS: HEMATOCRIT 29.4 % (36.0-48.0); HEMOGLOBIN 9.5 g/dL (12.0-16.0); MANUAL DIFF YES %; MEAN CORPUS HGB CONC 32.3 g/dL (32.0-36.0); MEAN CORPUSCULAR HEMOGLOB 32.2 pg (26.0-34.0); MEAN CORPUSCULAR VOLUME 99.7 fL (80-100); MEAN PLATELET VOLUME 9.4 fL (9.2-13.0); PLATELET COUNT 143 10/3/uL (150-400); RBC DISTRIBUTION WIDTH 15.7 % (12.0-16.0); RED CELL COUNT 2.95 10/6/uL (4.0-5.6); WHITE BLOOD CELLS 6.2 10/3/uL (4.5-10.5)
[2016-08-17 04:32] LABS: BUN (BLOOD UREA NITROGEN) 16 MG/DL (6-23); CALCIUM, SERUM 8.1 MG/DL (8.5-10.4); CHLORIDE, SERUM 104 MMOL/L (96-112); CO2 (CARBON DIOXIDE) 34 MMOL/L (24-34); CREATININE 0.47 MG/DL (0.55-1.02); GFR AFRICAN AMERICAN 119 ML/MIN (>=60); GFR NON AFRICAN AMERICAN 103 ML/MIN (>=60); GLUCOSE, SERUM 119 MG/DL (60-99); POTASSIUM, SERUM 4.1 MMOL/L (3.5-5.3); SODIUM, SERUM 139 MMOL/L (135-148)
[2016-08-17 04:46] LABS: BAND NEUTROPHILS 1 %; IMMATURE GRANS ABSOLUTE (CALC) 0.06 10/3/uL (0.0-0.11); LYMPHOCYTES 8 %; METAMYELOCYTES 1 %; MONOCYTES 1 %; MONOCYTES ABSOLUTE (CALC) 0.06 10/3/uL (0.21-1.20); NEUTROPHILS ABSOLUTE (CALC) 5.58 10/3/uL (2.02-8.40); PLATELET ESTIMATE SLT DEC (ADEQUATE); SEGMENTED NEUTROPHIL (0) 89 %; TOTAL NUCLEATED CELLS 100
[2016-08-17 04:47] LABS: RBC MORPHOLOGY NORM (NORMAL)
[2016-08-18 05:04] LABS: BASOPHILS 0.2 %; BASOPHILS ABSOLUTE 0.01 10/3/uL (0.0-0.16); EOSINOPHILS 0 %; HEMATOCRIT 29.3 % (36.0-48.0); HEMOGLOBIN 9.4 g/dL (12.0-16.0); IMMATURE GRANULOCYTES 2.6 %; IMMATURE GRANULOCYTES ABSOLUTE 0.16 10/3/uL (0.0-0.11); LYMPHOCYTES 7.9 %; LYMPHOCYTES ABSOLUTE 0.48 10/3/uL (0.67-4.30); MEAN CORPUS HGB CONC 32.1 g/dL (32.0-36.0); MEAN CORPUSCULAR HEMOGLOB 31.8 pg (26.0-34.0); MEAN PLATELET VOLUME 9.8 fL (9.2-13.0); MONOCYTES 6.7 %; MONOCYTES ABSOLUTE 0.41 10/3/uL (0.21-1.20); NEUTROPHILS 82.6 %; NEUTROPHILS ABSOLUTE 5.05 10/3/uL (2.02-8.40); PLATELET COUNT 159 10/3/uL (150-400); RBC DISTRIBUTION WIDTH 15.8 % (12.0-16.0); RED CELL COUNT 2.96 10/6/uL (4.0-5.6); WHITE BLOOD CELLS 6.1 10/3/uL (4.5-10.5)
[2016-08-18 05:06] LABS: MANUAL DIFF NO %
[2016-08-18 05:14] LABS: BUN (BLOOD UREA NITROGEN) 13 MG/DL (6-23); CALCIUM, SERUM 7.8 MG/DL (8.5-10.4); CHLORIDE, SERUM 107 MMOL/L (96-112); CO2 (CARBON DIOXIDE) 33 MMOL/L (24-34); CREATININE 0.45 MG/DL (0.55-1.02); GFR AFRICAN AMERICAN 121 ML/MIN (>=60); GFR NON AFRICAN AMERICAN 104 ML/MIN (>=60); PHOSPHORUS, SERUM 3.3 MG/DL (2.5-4.5); POTASSIUM, SERUM 3.9 MMOL/L (3.5-5.3); SODIUM, SERUM 139 MMOL/L (135-148)
[2016-08-18 05:15] LABS: GLUCOSE, SERUM 143 MG/DL (60-99)
[2016-08-19 04:07] LABS: BASOPHILS 0 %; EOSINOPHILS 0.2 %; EOSINOPHILS ABSOLUTE 0.01 10/3/uL (0.0-0.53); HEMATOCRIT 27.5 % (36.0-48.0); IMMATURE GRANULOCYTES 2.4 %; IMMATURE GRANULOCYTES ABSOLUTE 0.13 10/3/uL (0.0-0.11); LYMPHOCYTES 9.5 %; LYMPHOCYTES ABSOLUTE 0.52 10/3/uL (0.67-4.30); MEAN CORPUS HGB CONC 32.7 g/dL (32.0-36.0); MEAN CORPUSCULAR HEMOGLOB 32.4 pg (26.0-34.0); MEAN CORPUSCULAR VOLUME 98.9 fL (80-100); MEAN PLATELET VOLUME 9.5 fL (9.2-13.0); MONOCYTES 9.1 %; NEUTROPHILS 78.8 %; NEUTROPHILS ABSOLUTE 4.34 10/3/uL (2.02-8.40); PLATELET COUNT 154 10/3/uL (150-400); RBC DISTRIBUTION WIDTH 15.9 % (12.0-16.0); RED CELL COUNT 2.78 10/6/uL (4.0-5.6); WHITE BLOOD CELLS 5.5 10/3/uL (4.5-10.5)
[2016-08-19 04:15] LABS: MANUAL DIFF NO %
[2016-08-19 04:26] LABS: BUN (BLOOD UREA NITROGEN) 13 MG/DL (6-23); CHLORIDE, SERUM 105 MMOL/L (96-112); CO2 (CARBON DIOXIDE) 34 MMOL/L (24-34); CREATININE 0.35 MG/DL (0.55-1.02); GFR AFRICAN AMERICAN 131 ML/MIN (>=60); GFR NON AFRICAN AMERICAN 113 ML/MIN (>=60); GLUCOSE, SERUM 133 MG/DL (60-99); PHOSPHORUS, SERUM 3.4 MG/DL (2.5-4.5); POTASSIUM, SERUM 3.9 MMOL/L (3.5-5.3); SODIUM, SERUM 142 MMOL/L (135-148)
[2016-08-20 03:56] LABS: ALLENS TEST Pos; BE (BASE EXCESS) 11.2 MEQ/L (0 +/- 2.5); CARBOXYHEMOGLOBIN 0.1 % (0-3); INSTRUMENT SERIAL # 11843; METHEMOGLOBIN 0.4 % (0-3); MODE CMV; O2 CONTENT 13.6 VOL% (18-24); OPERATOR ID 31061; PCO2 (CO2 TENSION) 50 MMHG (35-45); PO2 (O2 TENSION) 93 MMHG (79-93); SAMPLE Arterial; TIDAL VOLUME 400 ML; pH 7.48 (7.37-7.43)
[2016-08-20 04:43] LABS: BUN (BLOOD UREA NITROGEN) 16 MG/DL (6-23); CHLORIDE, SERUM 101 MMOL/L (96-112); CO2 (CARBON DIOXIDE) 37 MMOL/L (24-34); CREATININE 0.35 MG/DL (0.55-1.02); GFR AFRICAN AMERICAN 131 ML/MIN (>=60); GFR NON AFRICAN AMERICAN 113 ML/MIN (>=60); GLUCOSE, SERUM 145 MG/DL (60-99); PHOSPHORUS, SERUM 3.6 MG/DL (2.5-4.5); POTASSIUM, SERUM 3.7 MMOL/L (3.5-5.3); SODIUM, SERUM 141 MMOL/L (135-148)
[2016-08-20 04:45] LABS: BASOPHILS 0 %; EOSINOPHILS 0 %; HEMATOCRIT 29.6 % (36.0-48.0); HEMOGLOBIN 9.7 g/dL (12.0-16.0); IMMATURE GRANULOCYTES 1.4 %; IMMATURE GRANULOCYTES ABSOLUTE 0.09 10/3/uL (0.0-0.11); LYMPHOCYTES 10.2 %; LYMPHOCYTES ABSOLUTE 0.64 10/3/uL (0.67-4.30); MEAN CORPUS HGB CONC 32.8 g/dL (32.0-36.0); MEAN CORPUSCULAR HEMOGLOB 32.2 pg (26.0-34.0); MEAN CORPUSCULAR VOLUME 98.3 fL (80-100); MEAN PLATELET VOLUME 9.9 fL (9.2-13.0); MONOCYTES 8.7 %; MONOCYTES ABSOLUTE 0.55 10/3/uL (0.21-1.20); NEUTROPHILS 79.7 %; NEUTROPHILS ABSOLUTE 5.01 10/3/uL (2.02-8.40); PLATELET COUNT 162 10/3/uL (150-400); RBC DISTRIBUTION WIDTH 16.2 % (12.0-16.0); RED CELL COUNT 3.01 10/6/uL (4.0-5.6); WHITE BLOOD CELLS 6.3 10/3/uL (4.5-10.5)
[2016-08-20 04:46] LABS: MANUAL DIFF NO %
[2016-08-20 11:16] LABS: BE (BASE EXCESS) 7.7 MEQ/L (0 +/- 2.5); CARBOXYHEMOGLOBIN 0.8 % (0-3); HCO3 (ACTUAL BICARBONATE) 32.9 MEQ/L (23-27); HEMOBLOGIN CONTENT 10.4 G/DL (12-16); INSTRUMENT SERIAL # 8083; METHEMOGLOBIN 0.2 % (0-3); O2 CONTENT 14.1 VOL% (18-24); OPERATOR ID 35188; PCO2 (CO2 TENSION) 49 MMHG (35-45); PO2 (O2 TENSION) 89 MMHG (79-93); PRESSURE SUPPORT 5 cm.H2O; SAMPLE Arterial; pH 7.44 (7.37-7.43)
[2016-08-20 22:11] LABS: ALLENS TEST Pos; CARBOXYHEMOGLOBIN 0.7 % (0-3); DEVICE NC; HCO3 (ACTUAL BICARBONATE) 35.5 MEQ/L (23-27); HEMOBLOGIN CONTENT 10.4 G/DL (12-16); INSTRUMENT SERIAL # 8083; METHEMOGLOBIN 0.2 % (0-3); O2 CONTENT 14.2 VOL% (18-24); OPERATOR ID 30013; PCO2 (CO2 TENSION) 53 MMHG (35-45); PO2 (O2 TENSION) 97 MMHG (79-93); SAMPLE Arterial; pH 7.45 (7.37-7.43)
[2016-08-21 05:05] LABS: BASOPHILS 0 %; EOSINOPHILS 0.2 %; EOSINOPHILS ABSOLUTE 0.01 10/3/uL (0.0-0.53); HEMATOCRIT 26.4 % (36.0-48.0); HEMOGLOBIN 8.7 g/dL (12.0-16.0); IMMATURE GRANULOCYTES 0.9 %; IMMATURE GRANULOCYTES ABSOLUTE 0.05 10/3/uL (0.0-0.11); LYMPHOCYTES 11.1 %; LYMPHOCYTES ABSOLUTE 0.59 10/3/uL (0.67-4.30); MANUAL DIFF NO %; MEAN CORPUSCULAR HEMOGLOB 32.3 pg (26.0-34.0); MEAN CORPUSCULAR VOLUME 98.1 fL (80-100); MEAN PLATELET VOLUME 10.3 fL (9.2-13.0); MONOCYTES ABSOLUTE 0.53 10/3/uL (0.21-1.20); NEUTROPHILS 77.8 %; NEUTROPHILS ABSOLUTE 4.12 10/3/uL (2.02-8.40); PLATELET COUNT 147 10/3/uL (150-400); RBC DISTRIBUTION WIDTH 16.2 % (12.0-16.0); RED CELL COUNT 2.69 10/6/uL (4.0-5.6); WHITE BLOOD CELLS 5.3 10/3/uL (4.5-10.5)
[2016-08-21 05:19] LABS: BUN (BLOOD UREA NITROGEN) 15 MG/DL (6-23); CALCIUM, SERUM 8.1 MG/DL (8.5-10.4); CHLORIDE, SERUM 103 MMOL/L (96-112); CO2 (CARBON DIOXIDE) 34 MMOL/L (24-34); CREATININE 0.33 MG/DL (0.55-1.02); GFR AFRICAN AMERICAN 134 ML/MIN (>=60); GFR NON AFRICAN AMERICAN 116 ML/MIN (>=60); GLUCOSE, SERUM 112 MG/DL (60-99); POTASSIUM, SERUM 3.6 MMOL/L (3.5-5.3); SODIUM, SERUM 142 MMOL/L (135-148)
[2016-08-22 04:36] LABS: BASOPHILS 0 %; EOSINOPHILS 0.6 %; EOSINOPHILS ABSOLUTE 0.04 10/3/uL (0.0-0.53); HEMATOCRIT 27.2 % (36.0-48.0); HEMOGLOBIN 8.9 g/dL (12.0-16.0); IMMATURE GRANULOCYTES 0.8 %; IMMATURE GRANULOCYTES ABSOLUTE 0.05 10/3/uL (0.0-0.11); LYMPHOCYTES 19.6 %; LYMPHOCYTES ABSOLUTE 1.29 10/3/uL (0.67-4.30); MEAN CORPUS HGB CONC 32.7 g/dL (32.0-36.0); MEAN CORPUSCULAR HEMOGLOB 32.4 pg (26.0-34.0); MEAN CORPUSCULAR VOLUME 98.9 fL (80-100); MEAN PLATELET VOLUME 10.1 fL (9.2-13.0); MONOCYTES 11.4 %; MONOCYTES ABSOLUTE 0.75 10/3/uL (0.21-1.20); NEUTROPHILS 67.6 %; NEUTROPHILS ABSOLUTE 4.44 10/3/uL (2.02-8.40); PLATELET COUNT 140 10/3/uL (150-400); RBC DISTRIBUTION WIDTH 15.9 % (12.0-16.0); RED CELL COUNT 2.75 10/6/uL (4.0-5.6); WHITE BLOOD CELLS 6.6 10/3/uL (4.5-10.5)
[2016-08-22 04:51] LABS: MANUAL DIFF NO %
[2016-08-22 04:55] LABS: A/G RATIO 1.4 (0.7-1.9); ALBUMIN 2.6 G/DL (3.5-5.0); ALKALINE PHOSPHATASE 32 U/L (45-117); BUN (BLOOD UREA NITROGEN) 14 MG/DL (6-23); CALCIUM, SERUM 8.2 MG/DL (8.5-10.4); CHLORIDE, SERUM 104 MMOL/L (96-112); CO2 (CARBON DIOXIDE) 32 MMOL/L (24-34); CREATININE 0.36 MG/DL (0.55-1.02); GFR AFRICAN AMERICAN 130 ML/MIN (>=60); GFR NON AFRICAN AMERICAN 112 ML/MIN (>=60); GLOBULIN 1.8 G/DL (2.5-4.1); PHOSPHORUS, SERUM 3.2 MG/DL (2.5-4.5); POTASSIUM, SERUM 3.4 MMOL/L (3.5-5.3); PREALBUMIN 21.3 MG/DL (17.0-43.0); SGOT(AST) 39 U/L (5-40); SGPT(ALT) 68 U/L (5-65); SODIUM, SERUM 141 MMOL/L (135-148); TOTAL BILIRUBIN 0.5 MG/DL (0-1.2); TOTAL PROTEIN 4.4 G/DL (6.0-8.5)
[2016-08-22 04:56] LABS: GLUCOSE, SERUM 83 MG/DL (60-99)
[2016-08-22 11:42] LABS: BE (BASE EXCESS) 1.1 MEQ/L (0 +/- 2.5); CARBOXYHEMOGLOBIN 0.5 % (0-3); HCO3 (ACTUAL BICARBONATE) 31.1 MEQ/L (23-27); HEMOBLOGIN CONTENT 11.1 G/DL (12-16); INSTRUMENT SERIAL # 8083; METHEMOGLOBIN 0.3 % (0-3); O2 CONTENT 14.4 VOL% (18-24); PCO2 (CO2 TENSION) 84 MMHG (35-45); PO2 (O2 TENSION) 81 MMHG (79-93); SAMPLE Arterial; pH 7.19 (7.37-7.43)
[2016-08-22 13:18] LABS: ALLENS TEST Pos; BE (BASE EXCESS) 9.6 MEQ/L (0 +/- 2.5); CARBOXYHEMOGLOBIN 1.3 % (0-3); INSTRUMENT SERIAL # 8083; METHEMOGLOBIN 0.3 % (0-3); MODE CMV; O2 CONTENT 12.7 VOL% (18-24); OPERATOR ID 14382; PCO2 (CO2 TENSION) 46 MMHG (35-45); PO2 (O2 TENSION) 157 MMHG (79-93); SAMPLE Arterial; TIDAL VOLUME 400 ML; pH 7.49 (7.37-7.43)
[2016-08-23 04:20] LABS: BASOPHILS 0 %; EOSINOPHILS 0.7 %; EOSINOPHILS ABSOLUTE 0.07 10/3/uL (0.0-0.53); HEMATOCRIT 27.3 % (36.0-48.0); HEMOGLOBIN 8.9 g/dL (12.0-16.0); IMMATURE GRANULOCYTES 0.7 %; IMMATURE GRANULOCYTES ABSOLUTE 0.07 10/3/uL (0.0-0.11); LYMPHOCYTES 14.2 %; LYMPHOCYTES ABSOLUTE 1.49 10/3/uL (0.67-4.30); MEAN CORPUS HGB CONC 32.6 g/dL (32.0-36.0); MEAN CORPUSCULAR HEMOGLOB 32.2 pg (26.0-34.0); MEAN CORPUSCULAR VOLUME 98.9 fL (80-100); MEAN PLATELET VOLUME 9.4 fL (9.2-13.0); MONOCYTES ABSOLUTE 0.95 10/3/uL (0.21-1.20); NEUTROPHILS 75.4 %; NEUTROPHILS ABSOLUTE 7.95 10/3/uL (2.02-8.40); PLATELET COUNT 169 10/3/uL (150-400); RED CELL COUNT 2.76 10/6/uL (4.0-5.6)
[2016-08-23 04:22] LABS: MANUAL DIFF NO %; WHITE BLOOD CELLS 10.5 10/3/uL (4.5-10.5)
[2016-08-23 04:24] LABS: ALLENS TEST Pos; BE (BASE EXCESS) 9.7 MEQ/L (0 +/- 2.5); CARBOXYHEMOGLOBIN 0.5 % (0-3); HCO3 (ACTUAL BICARBONATE) 34.8 MEQ/L (23-27); HEMOBLOGIN CONTENT 9.5 G/DL (12-16); INSTRUMENT SERIAL # 8083; METHEMOGLOBIN 0.4 % (0-3); MODE CMV; O2 CONTENT 12.9 VOL% (18-24); OPERATOR ID 32193; PCO2 (CO2 TENSION) 50 MMHG (35-45); PO2 (O2 TENSION) 91 MMHG (79-93); SAMPLE Arterial; TIDAL VOLUME 400 ML; pH 7.46 (7.37-7.43)
[2016-08-23 04:28] LABS: BUN (BLOOD UREA NITROGEN) 13 MG/DL (6-23); CALCIUM, SERUM 8.2 MG/DL (8.5-10.4); CHLORIDE, SERUM 104 MMOL/L (96-112); CO2 (CARBON DIOXIDE) 36 MMOL/L (24-34); CREATININE 0.35 MG/DL (0.55-1.02); GFR AFRICAN AMERICAN 131 ML/MIN (>=60); GFR NON AFRICAN AMERICAN 113 ML/MIN (>=60); GLUCOSE, SERUM 82 MG/DL (60-99); PHOSPHORUS, SERUM 3.4 MG/DL (2.5-4.5); POTASSIUM, SERUM 3.2 MMOL/L (3.5-5.3); SODIUM, SERUM 146 MMOL/L (135-148)
[2016-08-24 04:20] LABS: BASOPHILS 0 %; EOSINOPHILS 0.6 %; EOSINOPHILS ABSOLUTE 0.05 10/3/uL (0.0-0.53); HEMATOCRIT 26.8 % (36.0-48.0); HEMOGLOBIN 8.7 g/dL (12.0-16.0); IMMATURE GRANULOCYTES 0.3 %; IMMATURE GRANULOCYTES ABSOLUTE 0.03 10/3/uL (0.0-0.11); LYMPHOCYTES 6.6 %; LYMPHOCYTES ABSOLUTE 0.58 10/3/uL (0.67-4.30); MEAN CORPUS HGB CONC 32.5 g/dL (32.0-36.0); MEAN CORPUSCULAR HEMOGLOB 32.3 pg (26.0-34.0); MEAN CORPUSCULAR VOLUME 99.6 fL (80-100); MEAN PLATELET VOLUME 9.6 fL (9.2-13.0); MONOCYTES 7.2 %; MONOCYTES ABSOLUTE 0.64 10/3/uL (0.21-1.20); NEUTROPHILS 85.3 %; NEUTROPHILS ABSOLUTE 7.53 10/3/uL (2.02-8.40); PLATELET COUNT 143 10/3/uL (150-400); RBC DISTRIBUTION WIDTH 16.3 % (12.0-16.0); RED CELL COUNT 2.69 10/6/uL (4.0-5.6); WHITE BLOOD CELLS 8.8 10/3/uL (4.5-10.5)
[2016-08-24 04:21] LABS: MANUAL DIFF NO %
[2016-08-24 04:21] LABS: ALLENS TEST Pos; BE (BASE EXCESS) 7.9 MEQ/L (0 +/- 2.5); CARBOXYHEMOGLOBIN 0.8 % (0-3); HCO3 (ACTUAL BICARBONATE) 33.5 MEQ/L (23-27); HEMOBLOGIN CONTENT 9.5 G/DL (12-16); INSTRUMENT SERIAL # 8083; METHEMOGLOBIN 0.2 % (0-3); MODE CMV; O2 CONTENT 12.8 VOL% (18-24); OPERATOR ID 17370; PCO2 (CO2 TENSION) 53 MMHG (35-45); PO2 (O2 TENSION) 82 MMHG (79-93); SAMPLE Arterial; TIDAL VOLUME 400 ML; pH 7.42 (7.37-7.43)
[2016-08-24 04:43] LABS: BUN (BLOOD UREA NITROGEN) 15 MG/DL (6-23); CALCIUM, SERUM 8.4 MG/DL (8.5-10.4); CHLORIDE, SERUM 104 MMOL/L (96-112); CO2 (CARBON DIOXIDE) 33 MMOL/L (24-34); CREATININE 0.36 MG/DL (0.55-1.02); GFR AFRICAN AMERICAN 130 ML/MIN (>=60); GFR NON AFRICAN AMERICAN 112 ML/MIN (>=60); GLUCOSE, SERUM 123 MG/DL (60-99); PHOSPHORUS, SERUM 3.8 MG/DL (2.5-4.5); POTASSIUM, SERUM 3.5 MMOL/L (3.5-5.3); SODIUM, SERUM 143 MMOL/L (135-148)
[2016-08-25 04:01] LABS: ALLENS TEST Pos; BE (BASE EXCESS) 9.8 MEQ/L (0 +/- 2.5); HCO3 (ACTUAL BICARBONATE) 35.6 MEQ/L (23-27); HEMOBLOGIN CONTENT 10.3 G/DL (12-16); INSTRUMENT SERIAL # 8083; METHEMOGLOBIN 0.3 % (0-3); MODE CMV; O2 CONTENT 13.8 VOL% (18-24); OPERATOR ID 17589; PCO2 (CO2 TENSION) 55 MMHG (35-45); PO2 (O2 TENSION) 81 MMHG (79-93); SAMPLE Arterial; TIDAL VOLUME 400 ML; pH 7.43 (7.37-7.43)
[2016-08-25 05:13] LABS: BASOPHILS 0.1 %; BASOPHILS ABSOLUTE 0.01 10/3/uL (0.0-0.16); HEMATOCRIT 26.3 % (36.0-48.0); HEMOGLOBIN 8.5 g/dL (12.0-16.0); IMMATURE GRANULOCYTES 0.4 %; IMMATURE GRANULOCYTES ABSOLUTE 0.04 10/3/uL (0.0-0.11); LYMPHOCYTES 8.9 %; LYMPHOCYTES ABSOLUTE 0.85 10/3/uL (0.67-4.30); MEAN CORPUS HGB CONC 32.3 g/dL (32.0-36.0); MEAN CORPUSCULAR HEMOGLOB 32.4 pg (26.0-34.0); MEAN CORPUSCULAR VOLUME 100.4 fL (80-100); MEAN PLATELET VOLUME 9.7 fL (9.2-13.0); MONOCYTES 6.7 %; MONOCYTES ABSOLUTE 0.64 10/3/uL (0.21-1.20); NEUTROPHILS 82.9 %; NEUTROPHILS ABSOLUTE 7.93 10/3/uL (2.02-8.40); PLATELET COUNT 156 10/3/uL (150-400); RBC DISTRIBUTION WIDTH 16.7 % (12.0-16.0); RED CELL COUNT 2.62 10/6/uL (4.0-5.6); WHITE BLOOD CELLS 9.6 10/3/uL (4.5-10.5)
[2016-08-25 05:14] LABS: MANUAL DIFF NO %
[2016-08-25 05:27] LABS: BUN (BLOOD UREA NITROGEN) 14 MG/DL (6-23); CALCIUM, SERUM 8.1 MG/DL (8.5-10.4); CHLORIDE, SERUM 103 MMOL/L (96-112); CO2 (CARBON DIOXIDE) 35 MMOL/L (24-34); CREATININE 0.35 MG/DL (0.55-1.02); GFR AFRICAN AMERICAN 131 ML/MIN (>=60); GFR NON AFRICAN AMERICAN 113 ML/MIN (>=60); GLUCOSE, SERUM 126 MG/DL (60-99); PHOSPHORUS, SERUM 3.6 MG/DL (2.5-4.5); POTASSIUM, SERUM 3.3 MMOL/L (3.5-5.3); SODIUM, SERUM 142 MMOL/L (135-148)
[2016-08-26 04:58] LABS: BASOPHILS 0.1 %; BASOPHILS ABSOLUTE 0.01 10/3/uL (0.0-0.16); EOSINOPHILS 1.6 %; EOSINOPHILS ABSOLUTE 0.18 10/3/uL (0.0-0.53); HEMATOCRIT 27.7 % (36.0-48.0); IMMATURE GRANULOCYTES 0.4 %; IMMATURE GRANULOCYTES ABSOLUTE 0.05 10/3/uL (0.0-0.11); LYMPHOCYTES ABSOLUTE 1.37 10/3/uL (0.67-4.30); MEAN CORPUS HGB CONC 32.5 g/dL (32.0-36.0); MEAN CORPUSCULAR HEMOGLOB 32.7 pg (26.0-34.0); MEAN CORPUSCULAR VOLUME 100.7 fL (80-100); MEAN PLATELET VOLUME 9.8 fL (9.2-13.0); MONOCYTES 8.9 %; MONOCYTES ABSOLUTE 1.02 10/3/uL (0.21-1.20); PLATELET COUNT 161 10/3/uL (150-400); RBC DISTRIBUTION WIDTH 17.4 % (12.0-16.0); RED CELL COUNT 2.75 10/6/uL (4.0-5.6); WHITE BLOOD CELLS 11.4 10/3/uL (4.5-10.5)
[2016-08-26 05:06] LABS: MANUAL DIFF NO %
[2016-08-26 05:53] LABS: CALCIUM, SERUM 8.6 MG/DL (8.5-10.4); CHLORIDE, SERUM 102 MMOL/L (96-112); CO2 (CARBON DIOXIDE) 35 MMOL/L (24-34); CREATININE 0.46 MG/DL (0.55-1.02); GFR AFRICAN AMERICAN 120 ML/MIN (>=60); GFR NON AFRICAN AMERICAN 104 ML/MIN (>=60); GLUCOSE, SERUM 104 MG/DL (60-99); PHOSPHORUS, SERUM 4.3 MG/DL (2.5-4.5); SODIUM, SERUM 142 MMOL/L (135-148)
[2016-08-26 05:54] LABS: BUN (BLOOD UREA NITROGEN) 18 MG/DL (6-23)
[2016-08-27 04:30] LABS: BASOPHILS 0 %; EOSINOPHILS ABSOLUTE 0.09 10/3/uL (0.0-0.53); HEMATOCRIT 26.4 % (36.0-48.0); HEMOGLOBIN 8.6 g/dL (12.0-16.0); IMMATURE GRANULOCYTES 0.4 %; IMMATURE GRANULOCYTES ABSOLUTE 0.04 10/3/uL (0.0-0.11); LYMPHOCYTES 10.8 %; LYMPHOCYTES ABSOLUTE 0.99 10/3/uL (0.67-4.30); MEAN CORPUS HGB CONC 32.6 g/dL (32.0-36.0); MEAN CORPUSCULAR HEMOGLOB 32.8 pg (26.0-34.0); MEAN CORPUSCULAR VOLUME 100.8 fL (80-100); MEAN PLATELET VOLUME 9.9 fL (9.2-13.0); MONOCYTES 9.6 %; MONOCYTES ABSOLUTE 0.88 10/3/uL (0.21-1.20); NEUTROPHILS 78.2 %; NEUTROPHILS ABSOLUTE 7.14 10/3/uL (2.02-8.40); PLATELET COUNT 165 10/3/uL (150-400); RBC DISTRIBUTION WIDTH 17.3 % (12.0-16.0); RED CELL COUNT 2.62 10/6/uL (4.0-5.6); WHITE BLOOD CELLS 9.1 10/3/uL (4.5-10.5)
[2016-08-27 04:31] LABS: MANUAL DIFF NO %
[2016-08-27 04:44] LABS: BUN (BLOOD UREA NITROGEN) 17 MG/DL (6-23); CALCIUM, SERUM 8.7 MG/DL (8.5-10.4); CHLORIDE, SERUM 100 MMOL/L (96-112); CO2 (CARBON DIOXIDE) 37 MMOL/L (24-34); CREATININE 0.39 MG/DL (0.55-1.02); GFR AFRICAN AMERICAN 127 ML/MIN (>=60); GFR NON AFRICAN AMERICAN 109 ML/MIN (>=60); GLUCOSE, SERUM 106 MG/DL (60-99); PHOSPHORUS, SERUM 4.8 MG/DL (2.5-4.5); POTASSIUM, SERUM 3.7 MMOL/L (3.5-5.3); SODIUM, SERUM 140 MMOL/L (135-148)
[2016-08-28 04:26] LABS: BASOPHILS 0 %; EOSINOPHILS 1.8 %; EOSINOPHILS ABSOLUTE 0.13 10/3/uL (0.0-0.53); HEMATOCRIT 24.8 % (36.0-48.0); IMMATURE GRANULOCYTES 0.3 %; IMMATURE GRANULOCYTES ABSOLUTE 0.02 10/3/uL (0.0-0.11); LYMPHOCYTES 15.3 %; LYMPHOCYTES ABSOLUTE 1.08 10/3/uL (0.67-4.30); MEAN CORPUS HGB CONC 32.3 g/dL (32.0-36.0); MEAN CORPUSCULAR HEMOGLOB 32.4 pg (26.0-34.0); MEAN CORPUSCULAR VOLUME 100.4 fL (80-100); MONOCYTES 9.5 %; MONOCYTES ABSOLUTE 0.67 10/3/uL (0.21-1.20); NEUTROPHILS 73.1 %; NEUTROPHILS ABSOLUTE 5.15 10/3/uL (2.02-8.40); PLATELET COUNT 172 10/3/uL (150-400); RBC DISTRIBUTION WIDTH 17.1 % (12.0-16.0); RED CELL COUNT 2.47 10/6/uL (4.0-5.6); WHITE BLOOD CELLS 7.1 10/3/uL (4.5-10.5)
[2016-08-28 04:28] LABS: MANUAL DIFF NO %
[2016-08-28 04:47] LABS: A/G RATIO 1.3 (0.7-1.9); ALKALINE PHOSPHATASE 54 U/L (45-117); BUN (BLOOD UREA NITROGEN) 15 MG/DL (6-23); CALCIUM, SERUM 8.7 MG/DL (8.5-10.4); CHLORIDE, SERUM 106 MMOL/L (96-112); CO2 (CARBON DIOXIDE) 31 MMOL/L (24-34); GFR AFRICAN AMERICAN 126 ML/MIN (>=60); GFR NON AFRICAN AMERICAN 109 ML/MIN (>=60); GLOBULIN 2.3 G/DL (2.5-4.1); GLUCOSE, SERUM 90 MG/DL (60-99); POTASSIUM, SERUM 3.5 MMOL/L (3.5-5.3); SGOT(AST) 23 U/L (5-40); SGPT(ALT) 43 U/L (5-65); SODIUM, SERUM 142 MMOL/L (135-148); TOTAL BILIRUBIN 0.5 MG/DL (0-1.2); TOTAL PROTEIN 5.3 G/DL (6.0-8.5)
[2016-08-29 04:58] LABS: BASOPHILS 0 %; EOSINOPHILS 1.7 %; EOSINOPHILS ABSOLUTE 0.11 10/3/uL (0.0-0.53); HEMATOCRIT 23.1 % (36.0-48.0); HEMOGLOBIN 7.6 g/dL (12.0-16.0); IMMATURE GRANULOCYTES 0.2 %; IMMATURE GRANULOCYTES ABSOLUTE 0.01 10/3/uL (0.0-0.11); LYMPHOCYTES 16.8 %; LYMPHOCYTES ABSOLUTE 1.11 10/3/uL (0.67-4.30); MEAN CORPUS HGB CONC 32.9 g/dL (32.0-36.0); MEAN CORPUSCULAR HEMOGLOB 32.9 pg (26.0-34.0); MEAN PLATELET VOLUME 9.6 fL (9.2-13.0); MONOCYTES 10.6 %; NEUTROPHILS 70.7 %; NEUTROPHILS ABSOLUTE 4.69 10/3/uL (2.02-8.40); PLATELET COUNT 168 10/3/uL (150-400); RED CELL COUNT 2.31 10/6/uL (4.0-5.6); WHITE BLOOD CELLS 6.6 10/3/uL (4.5-10.5)
[2016-08-29 05:00] LABS: MANUAL DIFF NO %
[2016-08-29 05:14] LABS: A/G RATIO 1.2 (0.7-1.9); ALBUMIN 2.7 G/DL (3.5-5.0); ALKALINE PHOSPHATASE 48 U/L (45-117); BUN (BLOOD UREA NITROGEN) 12 MG/DL (6-23); CALCIUM, SERUM 8.6 MG/DL (8.5-10.4); CHLORIDE, SERUM 111 MMOL/L (96-112); CO2 (CARBON DIOXIDE) 29 MMOL/L (24-34); CREATININE 0.31 MG/DL (0.55-1.02); GFR AFRICAN AMERICAN 137 ML/MIN (>=60); GFR NON AFRICAN AMERICAN 118 ML/MIN (>=60); GLOBULIN 2.3 G/DL (2.5-4.1); GLUCOSE, SERUM 85 MG/DL (60-99); PHOSPHORUS, SERUM 4.9 MG/DL (2.5-4.5); POTASSIUM, SERUM 3.3 MMOL/L (3.5-5.3); PREALBUMIN 16.5 MG/DL (17.0-43.0); SGOT(AST) 17 U/L (5-40); SGPT(ALT) 32 U/L (5-65); SODIUM, SERUM 145 MMOL/L (135-148); TOTAL BILIRUBIN 0.7 MG/DL (0-1.2)
[2016-08-30 04:25] LABS: BASOPHILS 0 %; EOSINOPHILS 1.8 %; EOSINOPHILS ABSOLUTE 0.14 10/3/uL (0.0-0.53); HEMOGLOBIN 8.5 g/dL (12.0-16.0); IMMATURE GRANULOCYTES 0.3 %; IMMATURE GRANULOCYTES ABSOLUTE 0.02 10/3/uL (0.0-0.11); LYMPHOCYTES 11.6 %; LYMPHOCYTES ABSOLUTE 0.92 10/3/uL (0.67-4.30); MEAN CORPUS HGB CONC 31.5 g/dL (32.0-36.0); MEAN CORPUSCULAR HEMOGLOB 32.2 pg (26.0-34.0); MEAN CORPUSCULAR VOLUME 102.3 fL (80-100); MEAN PLATELET VOLUME 9.8 fL (9.2-13.0); MONOCYTES 10.6 %; MONOCYTES ABSOLUTE 0.84 10/3/uL (0.21-1.20); NEUTROPHILS 75.7 %; NEUTROPHILS ABSOLUTE 6.02 10/3/uL (2.02-8.40); RBC DISTRIBUTION WIDTH 16.7 % (12.0-16.0); RED CELL COUNT 2.64 10/6/uL (4.0-5.6); WHITE BLOOD CELLS 7.9 10/3/uL (4.5-10.5)
[2016-08-30 04:27] LABS: MANUAL DIFF NO %; PLATELET COUNT 226 10/3/uL (150-400)
[2016-08-30 04:40] LABS: BUN (BLOOD UREA NITROGEN) 11 MG/DL (6-23); CHLORIDE, SERUM 110 MMOL/L (96-112); CO2 (CARBON DIOXIDE) 31 MMOL/L (24-34); CREATININE 0.38 MG/DL (0.55-1.02); GFR AFRICAN AMERICAN 128 ML/MIN (>=60); GFR NON AFRICAN AMERICAN 110 ML/MIN (>=60); POTASSIUM, SERUM 3.7 MMOL/L (3.5-5.3); SODIUM, SERUM 147 MMOL/L (135-148)
[2016-08-30 04:43] LABS: GLUCOSE, SERUM 108 MG/DL (60-99)
[2016-08-31 04:20] LABS: BASOPHILS 0.2 %; BASOPHILS ABSOLUTE 0.01 10/3/uL (0.0-0.16); EOSINOPHILS 1.4 %; EOSINOPHILS ABSOLUTE 0.08 10/3/uL (0.0-0.53); HEMOGLOBIN 7.6 g/dL (12.0-16.0); IMMATURE GRANULOCYTES 0.4 %; IMMATURE GRANULOCYTES ABSOLUTE 0.02 10/3/uL (0.0-0.11); LYMPHOCYTES 19.7 %; LYMPHOCYTES ABSOLUTE 1.09 10/3/uL (0.67-4.30); MEAN CORPUS HGB CONC 31.5 g/dL (32.0-36.0); MEAN CORPUSCULAR HEMOGLOB 32.2 pg (26.0-34.0); MEAN CORPUSCULAR VOLUME 102.1 fL (80-100); MEAN PLATELET VOLUME 9.7 fL (9.2-13.0); MONOCYTES 9.8 %; MONOCYTES ABSOLUTE 0.54 10/3/uL (0.21-1.20); NEUTROPHILS 68.5 %; NEUTROPHILS ABSOLUTE 3.78 10/3/uL (2.02-8.40); PLATELET COUNT 210 10/3/uL (150-400); RBC DISTRIBUTION WIDTH 16.4 % (12.0-16.0); RED CELL COUNT 2.36 10/6/uL (4.0-5.6); WHITE BLOOD CELLS 5.5 10/3/uL (4.5-10.5)
[2016-08-31 04:23] LABS: HEMATOCRIT 24.1 % (36.0-48.0); MANUAL DIFF NO %
[2016-08-31 04:34] LABS: BUN (BLOOD UREA NITROGEN) 8 MG/DL (6-23); CALCIUM, SERUM 8.8 MG/DL (8.5-10.4); CHLORIDE, SERUM 109 MMOL/L (96-112); CO2 (CARBON DIOXIDE) 32 MMOL/L (24-34); CREATININE 0.39 MG/DL (0.55-1.02); GFR AFRICAN AMERICAN 127 ML/MIN (>=60); GFR NON AFRICAN AMERICAN 109 ML/MIN (>=60); GLUCOSE, SERUM 100 MG/DL (60-99); POTASSIUM, SERUM 3.3 MMOL/L (3.5-5.3); SODIUM, SERUM 148 MMOL/L (135-148)
[2016-08-31 04:36] LABS: PHOSPHORUS, SERUM 3.7 MG/DL (2.5-4.5)
[2016-09-01 03:43] LABS: BASOPHILS 0.2 %; BASOPHILS ABSOLUTE 0.01 10/3/uL (0.0-0.16); EOSINOPHILS 2.2 %; EOSINOPHILS ABSOLUTE 0.12 10/3/uL (0.0-0.53); HEMATOCRIT 23.6 % (36.0-48.0); HEMOGLOBIN 7.6 g/dL (12.0-16.0); IMMATURE GRANULOCYTES 0.4 %; IMMATURE GRANULOCYTES ABSOLUTE 0.02 10/3/uL (0.0-0.11); LYMPHOCYTES 21.3 %; LYMPHOCYTES ABSOLUTE 1.15 10/3/uL (0.67-4.30); MEAN CORPUS HGB CONC 32.2 g/dL (32.0-36.0); MEAN CORPUSCULAR HEMOGLOB 32.5 pg (26.0-34.0); MEAN CORPUSCULAR VOLUME 100.9 fL (80-100); MEAN PLATELET VOLUME 9.5 fL (9.2-13.0); MONOCYTES 9.3 %; NEUTROPHILS 66.6 %; PLATELET COUNT 216 10/3/uL (150-400); RBC DISTRIBUTION WIDTH 16.2 % (12.0-16.0); RED CELL COUNT 2.34 10/6/uL (4.0-5.6); WHITE BLOOD CELLS 5.4 10/3/uL (4.5-10.5)
[2016-09-01 03:49] LABS: MANUAL DIFF NO %
[2016-09-01 03:57] LABS: BUN (BLOOD UREA NITROGEN) 9 MG/DL (6-23); CALCIUM, SERUM 8.6 MG/DL (8.5-10.4); CHLORIDE, SERUM 111 MMOL/L (96-112); CO2 (CARBON DIOXIDE) 30 MMOL/L (24-34); CREATININE 0.32 MG/DL (0.55-1.02); GFR AFRICAN AMERICAN 135 ML/MIN (>=60); GFR NON AFRICAN AMERICAN 117 ML/MIN (>=60); GLUCOSE, SERUM 100 MG/DL (60-99); PHOSPHORUS, SERUM 3.3 MG/DL (2.5-4.5); POTASSIUM, SERUM 3.3 MMOL/L (3.5-5.3); SODIUM, SERUM 147 MMOL/L (135-148)
[2016-09-02 05:05] LABS: BASOPHILS 0.2 %; BASOPHILS ABSOLUTE 0.01 10/3/uL (0.0-0.16); EOSINOPHILS 1.2 %; EOSINOPHILS ABSOLUTE 0.06 10/3/uL (0.0-0.53); HEMATOCRIT 24.5 % (36.0-48.0); HEMOGLOBIN 7.7 g/dL (12.0-16.0); IMMATURE GRANULOCYTES 0.8 %; IMMATURE GRANULOCYTES ABSOLUTE 0.04 10/3/uL (0.0-0.11); LYMPHOCYTES 19.2 %; LYMPHOCYTES ABSOLUTE 0.99 10/3/uL (0.67-4.30); MEAN CORPUS HGB CONC 31.4 g/dL (32.0-36.0); MEAN CORPUSCULAR HEMOGLOB 32.4 pg (26.0-34.0); MEAN CORPUSCULAR VOLUME 102.9 fL (80-100); MEAN PLATELET VOLUME 9.7 fL (9.2-13.0); MONOCYTES 11.4 %; MONOCYTES ABSOLUTE 0.59 10/3/uL (0.21-1.20); NEUTROPHILS 67.2 %; NEUTROPHILS ABSOLUTE 3.47 10/3/uL (2.02-8.40); PLATELET COUNT 265 10/3/uL (150-400); RBC DISTRIBUTION WIDTH 16.2 % (12.0-16.0); RED CELL COUNT 2.38 10/6/uL (4.0-5.6); WHITE BLOOD CELLS 5.2 10/3/uL (4.5-10.5)
[2016-09-02 05:08] LABS: MANUAL DIFF NO %
[2016-09-02 05:26] LABS: ALBUMIN 2.9 G/DL (3.5-5.0); CHLORIDE, SERUM 110 MMOL/L (96-112); CO2 (CARBON DIOXIDE) 29 MMOL/L (24-34); CREATININE 0.27 MG/DL (0.55-1.02); GFR AFRICAN AMERICAN 143 ML/MIN (>=60); GFR NON AFRICAN AMERICAN 124 ML/MIN (>=60); GLUCOSE, SERUM 90 MG/DL (60-99); PHOSPHORUS, SERUM 3.5 MG/DL (2.5-4.5); POTASSIUM, SERUM 3.7 MMOL/L (3.5-5.3); SGOT(AST) 16 U/L (5-40); SGPT(ALT) 29 U/L (5-65); SODIUM, SERUM 146 MMOL/L (135-148); TOTAL BILIRUBIN 0.8 MG/DL (0-1.2); TOTAL PROTEIN 5.8 G/DL (6.0-8.5)
[2016-09-02 05:31] LABS: ALKALINE PHOSPHATASE 64 U/L (45-117); BUN (BLOOD UREA NITROGEN) 16 MG/DL (6-23); GLOBULIN 2.9 G/DL (2.5-4.1)
[2016-09-03 04:29] LABS: BASOPHILS 0.4 %; BASOPHILS ABSOLUTE 0.02 10/3/uL (0.0-0.16); EOSINOPHILS 1.5 %; EOSINOPHILS ABSOLUTE 0.08 10/3/uL (0.0-0.53); HEMATOCRIT 22.2 % (36.0-48.0); IMMATURE GRANULOCYTES 0.8 %; IMMATURE GRANULOCYTES ABSOLUTE 0.04 10/3/uL (0.0-0.11); LYMPHOCYTES 24.7 %; LYMPHOCYTES ABSOLUTE 1.29 10/3/uL (0.67-4.30); MEAN CORPUS HGB CONC 31.1 g/dL (32.0-36.0); MEAN CORPUSCULAR HEMOGLOB 32.4 pg (26.0-34.0); MEAN CORPUSCULAR VOLUME 104.2 fL (80-100); MEAN PLATELET VOLUME 9.7 fL (9.2-13.0); MONOCYTES ABSOLUTE 0.52 10/3/uL (0.21-1.20); NEUTROPHILS 62.6 %; NEUTROPHILS ABSOLUTE 3.27 10/3/uL (2.02-8.40); PLATELET COUNT 267 10/3/uL (150-400); RBC DISTRIBUTION WIDTH 15.8 % (12.0-16.0); RED CELL COUNT 2.13 10/6/uL (4.0-5.6); WHITE BLOOD CELLS 5.2 10/3/uL (4.5-10.5)
[2016-09-03 04:47] LABS: BUN (BLOOD UREA NITROGEN) 17 MG/DL (6-23); CALCIUM, SERUM 8.7 MG/DL (8.5-10.4); CHLORIDE, SERUM 109 MMOL/L (96-112); CO2 (CARBON DIOXIDE) 31 MMOL/L (24-34); CREATININE 0.33 MG/DL (0.55-1.02); GFR AFRICAN AMERICAN 134 ML/MIN (>=60); GFR NON AFRICAN AMERICAN 116 ML/MIN (>=60); PHOSPHORUS, SERUM 3.1 MG/DL (2.5-4.5); POTASSIUM, SERUM 3.9 MMOL/L (3.5-5.3); SODIUM, SERUM 143 MMOL/L (135-148)
[2016-09-03 04:48] LABS: GLUCOSE, SERUM 120 MG/DL (60-99)
[2016-09-03 04:55] LABS: HEMOGLOBIN 6.9 g/dL (12.0-16.0); MANUAL DIFF NO %
[2016-09-03 11:58] LABS: HEMATOCRIT 21.9 % (36.0-48.0)
[2016-09-04 04:40] LABS: BASOPHILS 0.3 %; BASOPHILS ABSOLUTE 0.02 10/3/uL (0.0-0.16); EOSINOPHILS 2.1 %; EOSINOPHILS ABSOLUTE 0.13 10/3/uL (0.0-0.53); HEMATOCRIT 24.2 % (36.0-48.0); HEMOGLOBIN 7.6 g/dL (12.0-16.0); IMMATURE GRANULOCYTES ABSOLUTE 0.06 10/3/uL (0.0-0.11); LYMPHOCYTES 20.8 %; LYMPHOCYTES ABSOLUTE 1.26 10/3/uL (0.67-4.30); MEAN CORPUS HGB CONC 31.4 g/dL (32.0-36.0); MEAN CORPUSCULAR HEMOGLOB 32.3 pg (26.0-34.0); MONOCYTES 11.9 %; MONOCYTES ABSOLUTE 0.72 10/3/uL (0.21-1.20); NEUTROPHILS 63.9 %; NEUTROPHILS ABSOLUTE 3.86 10/3/uL (2.02-8.40); RBC DISTRIBUTION WIDTH 15.3 % (12.0-16.0); RED CELL COUNT 2.35 10/6/uL (4.0-5.6); WHITE BLOOD CELLS 6.1 10/3/uL (4.5-10.5)
[2016-09-04 04:41] LABS: MANUAL DIFF NO %; PLATELET COUNT 369 10/3/uL (150-400)
[2016-09-04 04:49] LABS: BUN (BLOOD UREA NITROGEN) 15 MG/DL (6-23); CALCIUM, SERUM 9.3 MG/DL (8.5-10.4); CHLORIDE, SERUM 105 MMOL/L (96-112); CO2 (CARBON DIOXIDE) 34 MMOL/L (24-34); CREATININE 0.25 MG/DL (0.55-1.02); GFR AFRICAN AMERICAN 147 ML/MIN (>=60); GFR NON AFRICAN AMERICAN 127 ML/MIN (>=60); POTASSIUM, SERUM 3.8 MMOL/L (3.5-5.3); SODIUM, SERUM 144 MMOL/L (135-148)
[2016-09-04 04:51] LABS: GLUCOSE, SERUM 84 MG/DL (60-99)
[2016-09-05 04:19] LABS: BASOPHILS 0.6 %; BASOPHILS ABSOLUTE 0.03 10/3/uL (0.0-0.16); EOSINOPHILS ABSOLUTE 0.16 10/3/uL (0.0-0.53); HEMATOCRIT 24.9 % (36.0-48.0); HEMOGLOBIN 7.8 g/dL (12.0-16.0); IMMATURE GRANULOCYTES 1.5 %; IMMATURE GRANULOCYTES ABSOLUTE 0.08 10/3/uL (0.0-0.11); LYMPHOCYTES 20.6 %; MEAN CORPUS HGB CONC 31.3 g/dL (32.0-36.0); MEAN CORPUSCULAR HEMOGLOB 32.1 pg (26.0-34.0); MEAN CORPUSCULAR VOLUME 102.5 fL (80-100); MEAN PLATELET VOLUME 9.5 fL (9.2-13.0); MONOCYTES 12.7 %; MONOCYTES ABSOLUTE 0.68 10/3/uL (0.21-1.20); NEUTROPHILS 61.6 %; NEUTROPHILS ABSOLUTE 3.29 10/3/uL (2.02-8.40); PLATELET COUNT 413 10/3/uL (150-400); RED CELL COUNT 2.43 10/6/uL (4.0-5.6); WHITE BLOOD CELLS 5.3 10/3/uL (4.5-10.5)
[2016-09-05 04:21] LABS: MANUAL DIFF NO %
[2016-09-05 04:33] LABS: ALBUMIN 2.9 G/DL (3.5-5.0); ALKALINE PHOSPHATASE 61 U/L (45-117); BUN (BLOOD UREA NITROGEN) 17 MG/DL (6-23); CALCIUM, SERUM 8.9 MG/DL (8.5-10.4); CHLORIDE, SERUM 103 MMOL/L (96-112); CO2 (CARBON DIOXIDE) 33 MMOL/L (24-34); GFR AFRICAN AMERICAN 138 ML/MIN (>=60); GFR NON AFRICAN AMERICAN 119 ML/MIN (>=60); GLOBULIN 2.8 G/DL (2.5-4.1); PHOSPHORUS, SERUM 4.2 MG/DL (2.5-4.5); POTASSIUM, SERUM 3.6 MMOL/L (3.5-5.3); PREALBUMIN 13.3 MG/DL (17.0-43.0); SGOT(AST) 16 U/L (5-40); SGPT(ALT) 26 U/L (5-65); SODIUM, SERUM 141 MMOL/L (135-148); TOTAL BILIRUBIN 0.4 MG/DL (0-1.2); TOTAL PROTEIN 5.7 G/DL (6.0-8.5)
[2016-09-05 04:35] LABS: GLUCOSE, SERUM 104 MG/DL (60-99)
[2016-09-06 04:59] LABS: BASOPHILS 0.2 %; BASOPHILS ABSOLUTE 0.01 10/3/uL (0.0-0.16); EOSINOPHILS 1.3 %; EOSINOPHILS ABSOLUTE 0.07 10/3/uL (0.0-0.53); HEMATOCRIT 24.7 % (36.0-48.0); HEMOGLOBIN 7.9 g/dL (12.0-16.0); IMMATURE GRANULOCYTES 1.4 %; IMMATURE GRANULOCYTES ABSOLUTE 0.08 10/3/uL (0.0-0.11); LYMPHOCYTES 23.5 %; MANUAL DIFF NO %; MEAN CORPUSCULAR HEMOGLOB 32.5 pg (26.0-34.0); MEAN CORPUSCULAR VOLUME 101.6 fL (80-100); MEAN PLATELET VOLUME 9.2 fL (9.2-13.0); MONOCYTES ABSOLUTE 0.72 10/3/uL (0.21-1.20); NEUTROPHILS 60.6 %; NEUTROPHILS ABSOLUTE 3.36 10/3/uL (2.02-8.40); PLATELET COUNT 458 10/3/uL (150-400); RBC DISTRIBUTION WIDTH 14.8 % (12.0-16.0); RED CELL COUNT 2.43 10/6/uL (4.0-5.6); WHITE BLOOD CELLS 5.5 10/3/uL (4.5-10.5)
[2016-09-06 05:20] LABS: BUN (BLOOD UREA NITROGEN) 19 MG/DL (6-23); CALCIUM, SERUM 9.1 MG/DL (8.5-10.4); CHLORIDE, SERUM 100 MMOL/L (96-112); CO2 (CARBON DIOXIDE) 33 MMOL/L (24-34); CREATININE 0.32 MG/DL (0.55-1.02); FERRITIN 77 NG/ML (8-252); GFR AFRICAN AMERICAN 135 ML/MIN (>=60); GFR NON AFRICAN AMERICAN 117 ML/MIN (>=60); GLUCOSE, SERUM 104 MG/DL (60-99); POTASSIUM, SERUM 3.6 MMOL/L (3.5-5.3); SODIUM, SERUM 138 MMOL/L (135-148)
== END 2016-09-06 17:38 | disposition home or self-care (01) | DRG 4 ==
LOC: ER 15:51 → 4SO 18:42 → MIC 08-12 08:06
PROVIDERS: Emergency Medicine; Internal Medicine; Internal Medicine Critical Care Medicine; Internal Medicine Pulmonary Disease
PROC: 06HM33Z Insertion of Infusion Device into Right Femoral Vein, Percutaneous Approach (ICD-10-PCS; principal; 2016-08-12)
PROC: 5A1945Z Respiratory Ventilation, 24-96 Consecutive Hours (ICD-10-PCS; 2016-08-12)
PROC: B54BZZA Ultrasonography of Right Lower Extremity Veins, Guidance (ICD-10-PCS; 2016-08-12)
PROC: 0BH17EZ Insertion of Endotracheal Airway into Trachea, Via Natural or Artificial Opening (ICD-10-PCS; 2016-08-12)
PROC: 02HV33Z Insertion of Infusion Device into Superior Vena Cava, Percutaneous Approach (ICD-10-PCS; 2016-08-14)
PROC: 4A02X4A Measurement of Cardiac Electrical Activity, Guidance, External Approach (ICD-10-PCS; 2016-08-14)
PROC: 5A1955Z Respiratory Ventilation, Greater than 96 Consecutive Hours (ICD-10-PCS; 2016-08-22)
PROC: 0BH17EZ Insertion of Endotracheal Airway into Trachea, Via Natural or Artificial Opening (ICD-10-PCS; 2016-08-22)
PROC: 0DH63UZ Insertion of Feeding Device into Stomach, Percutaneous Approach (ICD-10-PCS; 2016-08-29)
PROC: 0B110F4 Bypass Trachea to Cutaneous with Tracheostomy Device, Open Approach (ICD-10-PCS; 2016-08-29)
DX: J96.21 Acute and chronic respiratory failure with hypoxia (principal); R57.9 Shock, unspecified; R13.0 Aphagia; J44.1 Chronic obstructive pulmonary disease with (acute) exacerbation; E87.70 Fluid overload, unspecified; Z99.81 Dependence on supplemental oxygen; J96.22 Acute and chronic respiratory failure with hypercapnia; I10 Essential (primary) hypertension; G89.4 Chronic pain syndrome; F41.9 Anxiety disorder, unspecified; F10.10 Alcohol abuse, uncomplicated; F32.9 Major depressive disorder, single episode, unspecified; F17.210 Nicotine dependence, cigarettes, uncomplicated; Z90.49 Acquired absence of other specified parts of digestive tract; Z82.49 Family history of ischemic heart disease and other diseases of the circulatory system; Z79.899 Other long term (current) drug therapy; Z98.890 Other specified postprocedural states; Z88.2 Allergy status to sulfonamides
CPT/HCPCS: 31720; 36569; 36600; 71010; 71260; 74000; 74177; 80048; 80053; 80069; 82105; 82330; 82378; 82550; 82553; 82728; 82803; 82805; 82947; 82962; 83036; 83605; 83735; 83880; 84100; 84132; 84134; 84145; 84295; 84443; 84484; 85014; 85018; 85025; 85610; 85730; 86301; 86304; 87040; 87070; 87205; 87641; 93005; 93971; 94002; 94003; 94640; 94660; 96365; 96375; 97162-GP; 99285; A9270-GY; C1751; C1894; C8929; C9113; J0690; J1120; J1200; J1720; J1940; J1956; J2543; J2920; J2930; J3010; J3411; J3475; P9045; P9047; Q9957; Q9967